=== PATIENT | male | born 1990 | race Caucasian/White ===

== ENCOUNTER 2019-11-08 13:05 | Inpatient (IN) | payer MEDICARE ==
[2019-11-08] MEDS ORDERED: ONDANSETRON 4 MG TAB.RAPDIS PO ONE (13:44)
--- NOTE | 2019-11-08 13:49 | ER Document Report ---
ED Medical Screen (RME) - General Chief Complaint: Abdominal Pain Stated Complaint: ABDOMINAL PAIN Time Seen by Provider: 11/08/19 13:39 - HPI Notes: 11/08/19 13:44 29-year-old male presents emergency room for complaints of abdominal pain with nausea and vomiting, worse after eating for the last 2 months. Patient states he ate a pop tart and coffee this morning and his pain became worse. Denies any endoscopy or colonoscopy. Denies any melena. Stooling normally. States the pain is mostly in his upper abdomen. Does not have a primary care provider. States he notices worse after eating mostly. Has not tried any [id number] medications. Denies Melena or hematemesis. Denies any fevers or chills. Has not had an endoscopy I have greeted and performed a rapid initial assessment of this patient. A comprehensive ED assessment and evaluation of the patient, analysis of test results and completion of the medical decision making process will be conducted by additional ED providers. PHYSICAL EXAMINATION: GENERAL: Well-appearing, well-nourished and in no acute distress. HEAD: Atraumatic, normocephalic. CV: s1, s2 regular LUNGS: No respiratory distress abd: upper abd pain,no CVA tenderness appreciated bilaterally Musculoskeletal: Normal range of motion NEUROLOGICAL: Normal speech, normal gait. SKIN: Warm, Dry, normal turgor, no rashes or lesions noted. - Related Data Allergies/Adverse Reactions: Sulfa (Sulfonamide Antibiotics) Allergy (Verified 11/08/19 13:44) Past Medical History - Social History Chew tobacco use (# tins/day): No Frequency of alcohol use: None Drug Abuse: None Physical Exam - Vital signs Vitals: Temp Pulse Resp BP Pulse Ox 97.4 F 91 20 153/87 H 99 11/08/19 13:10 11/08/19 13:10 11/08/19 13:10 11/08/19 13:10 11/08/19 13:10 Course - Vital Signs Vital signs: Temp Pulse Resp BP Pulse Ox 97.4 F 91 20 153/87 H 99 11/08/19 13:10 11/08/19 13:10 11/08/19 13:10 11/08/19 13:10 11/08/19 13:10
[2019-11-08] MEDS ORDERED: NORMAL SALINE 1000 ML 1,000 ML IV ONE (14:18)
[2019-11-08 14:36] LABS: APPEARANCE,URINE SLIGHTLY-CLOUDY; BILIRUBIN,URINE SMALL (NEGATIVE); COLOR,URINE AMBER; GLUCOSE, URINE NEGATIVE (NEGATIVE); KETONES,URINE NEGATIVE (NEGATIVE); LEUKOCYTE ESTERASE,URINE NEGATIVE (NEGATIVE); NITRITE,URINE NEGATIVE (NEGATIVE); PROTEIN,URINE 30 mg/dL (NEGATIVE); URINE SPECIFIC GRAVITY 1.029
--- NOTE | 2019-11-08 15:38 | RADIOLOGY REPORT (SQ) ---
EXAM DESCRIPTION: U/S ABDOMEN LTD W/DOPPLER IMAGES COMPLETED DATE/TIME: 11/08/2019 3:05 pm REASON FOR STUDY: abd pain worse after eating x2 months, worse today COMPARISON: None. TECHNIQUE: Dynamic and static grayscale images acquired of the abdomen and recorded on PACS. Montseo bhavik selected color Doppler and spectral images recorded. LIMITATIONS: None. FINDINGS: PANCREAS: No masses. Visualized pancreatic duct normal caliber. LIVER: Hepatomegaly with coarsened echotexture. No focal mass. No intrahepatic biliary dilatation. LIVER VASCULATURE: Normal directional flow of the main portal vein and hepatic veins. GALLBLADDER: Multiple small layering gallstones. Additional findings of an echogenic wall with ring down artifact consistent with adenomyomatosis. A small amount of pericholecystic fluid is demonstrat ed. ULTRASOUND-DETECTED BAEZA'S SIGN: Positive. INTRAHEPATIC DUCTS AND COMMON DUCT: CBD and intrahepatic ducts normal caliber. No filling defects. INFERIOR VENA CAVA: Normal flow. AORTA: No aneurysm. RIGHT KIDNEY: Normal size. Normal echogenicity. No solid or suspicious masses. No hydronephrosis. No calcifications. PERITONEAL AND RIGHT PLEURAL SPACE: No ascites or effusions. OTHER: No other significant findings. IMPRESSION: Constellation of findings suggests cholecystitis. Background of cholelithiasis and khalif omyomatosis. Hepatomegaly with coarsened echotexture is a nonspecific finding and may represent hepa titis, early cirrhotic change, or other. TECHNICAL DOCUMENTATION: JOB ID: [id number] 2010 [employer]- All Rights Reserved Reading location - IP/workstation name: [email or web address]
[2019-11-08 15:50] LABS: ABSOLUTE LYMPHOCYTES (AUTO) 0.6 10^3/uL (0.5-4.7); ABSOLUTE MONOCYTES (AUTO) 0.6 10^3/uL (0.1-1.4); ABSOLUTE NEUT (AUTO) 6.5 10^3/uL (1.7-8.2); BASOPHILS % (AUTO) 0.3 % (0-2); EOSINOPHILS % (AUTO) 0.4 % (0-6); HEMATOCRIT 41.9 % (37.9-51.0); HEMOGLOBIN 14.6 g/dL (13.5-17.0); LYMPHOCYTES % (AUTO) 7.5 % (13-45); MEAN CORPUSCULAR HEMOGLOBIN 29.6 pg (27.0-33.4); MEAN CORPUSCULAR HGB CONC 34.9 g/dL (32.0-36.0); MEAN CORPUSCULAR VOLUME 85 fl (80-97); MONOCYTES % (AUTO) 7.4 % (3-13); PLATELET COUNT 264 10^3/uL (150-450); RED BLOOD COUNT 4.93 10^6/uL (4.35-5.55); RED CELL DISTRIBUTION WIDTH 13.6 % (11.5-14.0); SEGMENTED NEUTROPHILS % (AUTO) 84.4 % (42-78); TOTAL CELLS COUNTED % (AUTO) 100 %; WHITE BLOOD COUNT 7.7 10^3/uL (4.0-10.5)
[2019-11-08 16:06] LABS: ALBUMIN 4.9 g/dL (3.5-5.0); ALKALINE PHOSPHATASE 226 U/L (38-126); ANION GAP 13 (5-19); ASPARTATE AMINO TRANSFERASE 620 U/L (17-59); BILIRUBIN,DIRECT 2.5 mg/dL (0.0-0.4); BILIRUBIN,TOTAL 3.5 mg/dL (0.2-1.3); BLOOD UREA NITROGEN 11 mg/dL (7-20); CARBON DIOXIDE 29 mmol/L (22-30); CHLORIDE 98 mmol/L (98-107); GLUCOSE 121 mg/dL (75-110); POTASSIUM 4.9 mmol/L (3.6-5.0)
[2019-11-08] MEDS ORDERED: HYDROCODONE/ACETAMINOPHEN 5-325 MG TABLET PO ONE (16:28)
[2019-11-08] MEDS ORDERED: ONDANSETRON HCL INJ/PF 4 MG/2 ML SDV IV ONE (19:01)
[2019-11-08] MEDS ORDERED: MORPHINE SULFATE 10 MG/ML INJ IV ONE (19:01)
[2019-11-08] MEDS ORDERED: HYDROMORPHONE HCL INJ/PF 2 MG/ML AMPULE IV ONE (21:23)
[2019-11-08] MEDS ORDERED: RINGERS SOLUTION,LACTATED 1,000 ML IV ONE (21:40)
--- NOTE | 2019-11-08 22:16 | ER Document Report ---
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 Patient states that he has had belly pain for months. Had some worse pain today with some vomiting and came in. No fevers or chills. - Related Data Allergies/Adverse Reactions: Sulfa (Sulfonamide Antibiotics) Allergy (Verified 11/08/19 13:44) Past Medical History - General Information source: Patient - Social History Smoking Status: Never Smoker Chew tobacco use (# tins/day): No Frequency of alcohol use: None Drug Abuse: None Family History: None Review of Systems - Review of Systems Notes: Constitutional: No fevers. No chills. EENT: No eye redness. No eye pain. No ear pain. No sore throat. Cardiovascular: No chest pain. No palpitations. Respiratory: No cough. No shortness of breath. No respiratory distress. Gastrointestinal: Positive for abdominal pain as well as nausea and vomiting Genitourinary: Atraumatic. No lesions. No pain. No discharge. Musculoskeletal: Atraumatic. No swelling. No deformities. Skin: No rash or lesions. Lymphatic: No swollen lymph nodes. Neurologic: No headache. No syncope. Psychiatric: No suicidal or homicidal ideation. Physical Exam - Vital signs Vitals: Temp Pulse Resp BP Pulse Ox 97.4 F 91 20 153/87 H 99 11/08/19 13:10 11/08/19 13:10 11/08/19 13:10 11/08/19 13:10 11/08/19 13:10 - Notes Notes: General: Well-developed, well-nourished. In no acute distress. Non-toxic appearing. Cardiac: Well-perfused. Regular rate and rhythm. No murmurs, rubs, or gallops. Pulmonary: No respiratory distress. No cyanosis. Bilateral lung day are clear to auscultation. Abdominal: Morbidly obese. Epigastric and right upper quadrant tenderness. Abdomen nondistended. Bowel sounds present all 4 quadrants HEENT: Head is atraumatic. Conjunctivae not reddened. No tearing. PERRL. EOMI. Orbits atraumatic. No periorbital swelling or erythema. Oropharynx is without erythema, swelling, or exudates. Neck: Supple. No adenopathy. No meningismus. Dermatologic: Warm with good turgor. No rash. Atraumatic. Chest: Atraumatic. No chest wall tenderness to palpation. Musculoskeletal: Moves all extremities well. No range of motion deficits. no muscular or joint tenderness. No paraspinal muscle tenderness. no midline spinal tenderness or step-off. Genitourinary: Examination deferred Neurologic: No gross neurologic deficits. Psychiatric: Normal mood. Course - Re-evaluation Re-evalutation: 11/08/19 22:[address] Sullivan search engine optimization manager for surgery. Will come down to see the patient. Believes that this is a gallstone pancreatitis and not a cholecystitis and should be managed medically by the hospitalist. Dr. Whittaker contacted and declines admit stating patient will need ERCP and need to transfer. Contacted [facility], [facility], and [facility] who did not have any beds available. I was advised by the surgeon at [facility] that this is something that should be managed medically and then potentially there may be a need down the road for ERCP so at least at first the patient should be managed by hospitalist service. In any event Dr. Sullivan did come to see the patient. He wants the patient heavily hydrated with 3 L of IV fluids and then have a CT with IV contrast completed. In the meantime he said that he would admit but he wants the patient to go to the ICU. I spoke with Paco JARRETT who said he will come and see the patient and plan to admit to the unit. - Vital Signs Vital signs: Temp Pulse Resp BP Pulse Ox 98.2 F 85 20 140/89 H 100 11/08/19 20:22 11/08/19 20:22 11/08/19 20:22 11/08/19 20:22 11/08/19 20:22 - Laboratory Result Diagrams: 11/08/19 15:10 11/08/19 15:10 Laboratory results interpreted by me: 11/08/19 11/08/19 11/08/19 14:00 15:10 15:10 Lymph % (Auto) 7.5 L Seg Neutrophils % 84.4 H Glucose 121 H Total Bilirubin 3.5 H Direct Bilirubin 2.5 H AST 620 H ALT 513 H Alkaline Phosphatase 226 H Lipase 13355.4 H Urine Protein 30 H Urine Bilirubin SMALL H Urine Urobilinogen 4.0 H - Diagnostic Test Radiology reviewed: Reports reviewed Discharge - Discharge Clinical Impression: Gallstone pancreatitis Condition: Good Disposition: ADMITTED INPATIENT Admitting Provider: paco jarrett Unit Admitted: ICU
[2019-11-09] MEDS: RINGERS SOLUTION,LACTATED 1,000 ML IV PRN ×7 (00:20→23:28)
--- NOTE | 2019-11-09 00:32 | PDOC CONSULTATION ---
Consultation Consult Date: 11/09/19 Attending physician:: EARNEST GARAY Provider Consulted: JATIN CARMICHAEL Consult reason:: gallstonep pancreatitis History of Present Illness Admission Date/PCP: 11/08/19 22:45 History of Present Illness: EGRONIMO ROPER is a 29 year old malePatient is a 29-year-old male with history of Levar Willi syndrome who comes in with chief complaint of upper abdominal pain and vomiting. Patient states that he has had belly pain for mon ths. Had some worse pain today with some vomiting and came in. No fevers or chills Past Medical History Cardiac Medical History: Reports: None Pulmonary Medical History: Reports: None EENT Medical History: Reports: None Neurological Medical History: Reports: Other - partial fascial hemiparesis since Endocrine Medical History: Reports: Other - levar-castillo syndrome Renal/ Medical History: Reports: None Malignancy Medical History: Reports: None GI Medical History: Reports: None Musculoskeltal Medical History: Reports: None Skin Medical History: Reports: None Psychiatric Medical History: Denies: None, Alcohol Dependency, Attention Deficit Hyperactivity Disorder, Bipolar Disorder, Dementia, Depression, General Anxiety Disorder, Personality Disorder, Post Traumatic Stress Disorder, Schizoaffective Disorder, Substance Abuse, Tobacco Dependency, Other Traumatic Medical History: Denies: None, Gunshot Wound, Pneumothorax, Stab Wound, Traumatic Brain Injury, Other Hematology: Denies: None, Anemia, Hemophilia, Sickle Cell Disease, Bleeding Tendencies, Heparin Induced Thrombocytopenia, Neutropenia, Other Infectious Medical History: Denies: None, Clostridium Difficile, Hepatitis B, Hepatitis C, HIV, Methicill in-Resistant Staph Aureus, Vancomycin-Resistant Enterococci, Other Past Surgical History Past Surgical History: Denies: None, Appendectomy, Cardiac Catheterization, Carotid Endarterectomy, Cholecystectomy, Colostomy, Coronary Artery Bypass Graft, Coronary Stent, Gastric Bypass Surgery, Herniorrhaphy, Hip Replacement, Ileostomy, Internal Defibrillator, Knee Replacement, Orthopedic Surgery, Pacemaker, Renal Transplant, Splenectomy, Thyroidectomy, Tonsillectomy, Valve Replacement, Vascular Surgery, Other Social History Smoking Status: Never Smoker Electronic Cigarette use?: No Family History Family History: None Parental Family History Reviewed: No Children Family History Reviewed: NA Sibling(s) Family History Reviewed.: NA Medication/Allergy Allergies/Adverse Reactions: Sulfa (Sulfonamide Antibiotics) Allergy (Verified 11/08/19 13:44) Review of Systems Constitutional: PRESENT: fatigue Eyes: ABSENT: as per HPI, visual disturbances, other Ears: ABSENT: as per HPI, hearing changes, other Nose, Mouth, and Throat: ABSENT: as per HPI, headache(s), mouth pain, sore throat, vertigo, other Breasts: ABSENT: as per HPI, other Cardiovascular: ABSENT: as per HPI, chest pain, dyspnea on exertion, edema, orthropnea, palpitations, other Respiratory: ABSENT: as per HPI, cough, dyspnea, hemoptysis, sputum, other Gastrointestinal: ABSENT: as per HPI, abdominal pain, bloating, coffee ground emesis, constipation, diarrhea, dysphagia, heartburn, hematemesis, hematochezia, melena, nausea, vomiting, other Genitourinary: ABSENT: as per HPI, difficulty urinating, dysuria, hematuria, nocturia, other Musculoskeletal: ABSENT: as per HPI, back pain, deformity, joint swelling, muscle weakness, other Integumentary: ABSENT: as per HPI, diaphoresis, erythema, lesions, pruritus, rash, wounds, other Neurological: PRESENT: focal weakness, weakness Psychiatric: ABSENT: as per HPI, anxiety, depression, hallucinations, homidical ideation, suicidal ideation, other Endocrine: ABSENT: as per HPI, cold intolerance, flushing, heat intolerance, menstrual abnormalities, polydipsia, polyphagia, polyuria, other Hematologic/Lymphatic: ABSENT: as per HPI, easy bleeding, easy bruising, lymphadenopathy, other Allergic/Immunologic: ABSENT: as per HPI, seasonal rhinorrhea, other Physical Exam Vital Signs: Temp Pulse Resp BP Pulse Ox 98.2 F 85 20 140/89 H 100 11/08/19 20:22 11/08/19 20:22 11/08/19 20:22 11/08/19 20:22 11/08/19 20:22 Intake & Output 11/07/19 11/08/19 11/09/19 06:59 06:59 06:59 Intake Total 1999 Balance 1999 Weight 185.5 kg General appearance: PRESENT: mild distress, morbidly obese Head exam: PRESENT: atraumatic Eye exam: PRESENT: EOMI Ear exam: PRESENT: normal external ear exam Mouth exam: PRESENT: dry mucosa, moist Teeth exam: PRESENT: poor dentation Neck exam: PRESENT: full ROM Respiratory exam: PRESENT: clear to auscultation mari Cardiovascular exam: PRESENT: RRR Pulses: PRESENT: normal radial pulses, normal femoral pulses Breast: PRESENT: Normal GI/Abdominal exam: PRESENT: tenderness - ruq and epigastrium Rectal exam: PRESENT: deferred Gentrourinary exam: ABSENT: ecchymosis, erythema, lacerations, lesions, scrotal swelling, testicular tenderness, urethral discharge, indwelling catheter, other Extremities exam: PRESENT: full ROM Musculoskeletal exam: PRESENT: full ROM Neurological exam: PRESENT: alert, awake, oriented to person, oriented to place Psychiatric exam: PRESENT: appropriate affect Skin exam: PRESENT: dry Results Laboratory Results: 11/08/19 15:10 11/08/19 15:10 11/08/19 11/08/19 11/08/19 14:00 15:10 15:10 WBC 7.7 RBC 4.93 Hgb 14.6 Hct 41.9 MCV 85 MCH 29.6 MCHC 34.9 RDW 13.6 Plt Count 264 Seg Neutrophils % 84.4 H Sodium 139.6 Potassium 4.9 Chloride 98 Carbon Dioxide 29 Anion Gap 13 BUN 11 Creatinine 0.74 Est GFR ( Amer) > 60 Glucose 121 H Calcium 10.0 Total Bilirubin 3.5 H AST 620 H Alkaline Phosphatase 226 H Total Protein 8.0 Albumin 4.9 Lipase 57143.4 H Urine Color MARY Urine Appearance SLIGHTLY-CLOUDY Urine pH 5.0 Ur Specific [place] 1.029 Urine Protein 30 H Urine Glucose (UA) NEGATIVE Urine Ketones NEGATIVE Urine Blood NEGATIVE Urine Nitrite NEGATIVE Ur Leukocyte Esterase NEGATIVE Urine WBC (Auto) 2 Urine RBC (Auto) 0 Impressions: Abdomen Ultrasound 11/08/19 13:43 IMPRESSION: Constellation of findings suggests cholecystitis. Background of cholelithiasis and adenomyomatosis. Hepatomegaly with coarsened echotexture is a nonspecific finding and may represent hepatitis, early cirrhotic change, or other. Assessment & Plan - Plan Summary Plan Summary: impression- Gallstone Pancreatitis morbid obesity recommend icu admission and iv resuscitation ct scan after iv resuscitation will trend lft's, renal function, lipase will need lap mary before discharge home. surgery will follow
[2019-11-09] MEDS ORDERED: HYDROMORPHONE HCL INJ/PF 2 MG/ML AMPULE IV PRN (00:41)
--- NOTE | 2019-11-09 01:54 | CRITICAL CARE ADMISSION REPORT ---
HPI Date:: 11/09/19 Time:: 00:55 Reason for ICU Reason:: Pancreatitis Admission Date/Time & PCP: Admission Date/Time: 11/08/19 22:45 Primary Care Provider: HPI: 29-year-old gentleman with a history of Prader-Willi syndrome and partial facial hemiparesis since childbirth. He has been experiencing upper abdominal pain for the past 4 months. Patient's abdominal pain was worsened today with associated vomiting. Abdominal ultrasound shows evidence of cholelithiasis and patient's pancreatic enzymes are significantly elevated. In the ED, patient is being rehydrated and will undergo a CT scan of his abdomen to further evaluate. He is being admitted to the intensive care unit for observation overnight and for aggressive rehydration. History obtained from:: Patient, Medical Documentation. - Diagnosis/Plan (1) Gallstone pancreatitis Is this a current diagnosis for this admission?: Yes Plan: Continue rehydration with LR at 250 mL an hour overnight. Monitor strict I's and O's. Follow-up CT scan Went with Dilaudid as needed. Patient is being followed by surgery for eventual intervention. Past Medical History Cardiac Medical History: Reports: None Pulmonary Medical History: Reports: None EENT Medical History: Reports: None Denies: Other Neurological Medical History: Reports: Other - partial fascial hemiparesis since Endocrine Medical History: Reports: Other - ej-castillo syndrome Renal/ Medical History: Reports: None Malignancy Medical History: Reports: None GI Medical History: Reports: None Musculoskeltal Medical History: Reports: None Skin Medical History: Reports: None Psychiatric Medical History: Reports: Other - Prader-Willi syndrome Denies: None, Alcohol Dependency, Attention Deficit Hyperactivity Disorder, Bipolar Disorder, Dementia, Depression, General Anxiety Disorder, Personality Disorder, Post Traumatic Stress Disorder, Schizoaffective Disorder, Substance Abuse, Tobacco Dependency Traumatic Medical History: Denies: None, Gunshot Wound, Pneumothorax, Stab Wound, Traumatic Brain Injury, Other Hematology: Denies: None, Anemia, Hemophilia, Sickle Cell Disease, Bleeding Tendencies, Heparin Induced Thrombocytopenia, Neutropenia, Other Infectious Medical History: Denies: None, Clostridium Difficile, Hepatitis B, Hepatitis C, HIV, Methicillin-Resistant Staph Aureus, Vancomycin-Resistant Enterococci, Other Past Surgical History Past Surgical History: Reports: None Denies: Appendectomy, Cardiac Catheterization, Carotid Endarterectomy, Cholecystectomy, Colostomy, Coronary Artery Bypass Graft, Coronary Stent, Gastric Bypass Surgery, Herniorrhaphy, Hip Replacement, Ileostomy, Internal Defibrillator, Knee Replacement, Orthopedic Surgery, Pacemaker, Renal Transplant, Splenectomy, Thyroidectomy, Tonsillectomy, Valve Replacement, Vascular Surgery, Other Social/Family History - Social History Smoking Status: Never Smoker - Medication/Allergies Allergies/Adverse Reactions: Sulfa (Sulfonamide Antibiotics) Allergy (Verified 11/08/19 13:44) Review of Systems Constitutional: PRESENT: as per HPI Gastrointestinal: PRESENT: as per HPI, nausea - Patient with ongoing abdominal pain worse on the left., other Psychiatric: PRESENT: as per HPI Physical Exam Vital Signs: Temp Pulse Resp BP Pulse Ox 98.2 F 85 20 140/89 H 100 11/08/19 20:22 11/08/19 20:22 11/08/19 20:22 11/08/19 20:22 11/08/19 20:22 Intake & Output 11/07/19 11/08/19 11/09/19 06:59 06:59 06:59 Intake Total 1999 Balance 1999 Weight 185.5 kg Weight/Height Weight 185.5 kg Height 6 ft General appearance: PRESENT: morbidly obese Head exam: PRESENT: atraumatic, normocephalic Neck exam: PRESENT: full ROM. ABSENT: JVD, lymphadenopathy Respiratory exam: PRESENT: clear to auscultation mari. ABSENT: rales, rhonchi, wheezes Cardiovascular exam: PRESENT: RRR, +S1, +S2 Pulses: PRESENT: normal carotid pulses, normal radial pulses Vascular exam: PRESENT: normal capillary refill GI/Abdominal exam: PRESENT: guarding, hypoactive bowel sounds, soft, tenderness Extremities exam: ABSENT: pedal edema Musculoskeletal exam: PRESENT: normal inspection Neurological exam: PRESENT: alert, altered, awake Psychiatric exam: PRESENT: anxious, appropriate affect Skin exam: PRESENT: normal color, warm. ABSENT: abrasion Laboratory/Radiographs Laboratory Results: 11/08/19 15:10 11/08/19 15:10 11/08/19 11/08/19 11/08/19 14:00 15:10 15:10 WBC 7.7 RBC 4.93 Hgb 14.6 Hct 41.9 MCV 85 MCH 29.6 MCHC 34.9 RDW 13.6 Plt Count 264 Seg Neutrophils % 84.4 H Sodium 139.6 Potassium 4.9 Chloride 98 Carbon Dioxide 29 Anion Gap 13 BUN 11 Creatinine 0.74 Est GFR ( Amer) > 60 Glucose 121 H Calcium 10.0 Total Bilirubin 3.5 H AST 620 H Alkaline Phosphatase 226 H Total Protein 8.0 Albumin 4.9 Lipase 85233.4 H Urine Color MARY Urine Appearance SLIGHTLY-CLOUDY Urine pH 5.0 Ur Specific [place] 1.029 Urine Protein 30 H Urine Glucose (UA) NEGATIVE Urine Ketones NEGATIVE Urine Blood NEGATIVE Urine Nitrite NEGATIVE Ur Leukocyte Esterase NEGATIVE Urine WBC (Auto) 2 Urine RBC (Auto) 0 Impressions: Abdomen Ultrasound 11/08/19 13:43 IMPRESSION: Constellation of findings suggests cholecystitis. Background of cholelithiasis and adenomyomatosis. Hepatomegaly with coarsened echotexture is a nonspecific finding and may represent hepatitis, early cirrhotic change, or ot her. All labs, radiographs, diagnostic studies and EKGs were personally reviewed: Yes In addition, reports of radiographic and diagnostic studies were read: Yes Critical Time Critical Time (minutes): 62 -: The care of a critically ill patient is dynamic. This note represents a static moment in the admission process. Orders and treatments may be given simultaneously and urgently, and time is not sales representative raw fibers of the treatment process. This patient requires Critical Care secondary to life threatening organ or limb dysfunction. Without Critical Care services, the patient is at risk for increased mortality and morbidity.
--- NOTE | 2019-11-09 03:29 | RADIOLOGY REPORT (SQ) ---
CLINICAL HISTORY: abdominal pain, burning, nausea, vomiting COMPARISON: None. TECHNIQUE: CT ABDOMEN PELVIS WITH IV CONTRAST on 11/08/2019 9:45 PM CDT This exam was performed according to our departmental dose-optimization program, which includes automated exposure control, adjustment of the mA and/or kV according to patient size and/or use of iterative reconstruction technique. FINDINGS: Lower lungs are clear. Abdomen: The liver is normal in appearance. There is no biliary dilatation. Gallbladder is fatty in attenuation. Gallbladder is mildly distended. There is moderate inflammation surrounding the pancreas. Spleen is normal in size. The adrenal glands and kidneys are unremarkable. Abdominal aorta is normal in course and caliber without aneurysm. There is no free air. There is no retroperitoneal adenopathy. Pelvis: There is no bowel obstruction. Urinary bladder is decompressed with a Chris catheter. There is no free fluid. Appendix is normal. Skeleton: There are no acute osseous findings. No suspicious bony lesions. IMPRESSION: Moderate diffuse pancreatitis.
[2019-11-09] MEDS: HYDROMORPHONE HCL INJ/PF 2 MG/ML AMPULE IV PRN ×9 (03:41→22:02)
[2019-11-09] MEDS: HEPARIN SOD (PORCINE) 5,000 UNIT/ML 1 ML VIAL SUBCUT SCH ×3 (06:23→21:59)
[2019-11-09 06:28] LABS: HEMATOCRIT 36.6 % (37.9-51.0); MEAN CORPUSCULAR HEMOGLOBIN 29.9 pg (27.0-33.4); MEAN CORPUSCULAR HGB CONC 35.5 g/dL (32.0-36.0); MEAN CORPUSCULAR VOLUME 84 fl (80-97); PLATELET COUNT 199 10^3/uL (150-450); RED BLOOD COUNT 4.36 10^6/uL (4.35-5.55); RED CELL DISTRIBUTION WIDTH 13.9 % (11.5-14.0); WHITE BLOOD COUNT 6.6 10^3/uL (4.0-10.5)
[2019-11-09 06:43] LABS: ALBUMIN 3.9 g/dL (3.5-5.0); ALKALINE PHOSPHATASE 179 U/L (38-126); AMYLASE 444 U/L (30-110); ANION GAP 9 (5-19); ASPARTATE AMINO TRANSFERASE 225 U/L (17-59); BILIRUBIN,DIRECT 0.5 mg/dL (0.0-0.4); BILIRUBIN,TOTAL 1.2 mg/dL (0.2-1.3); BLOOD UREA NITROGEN 8 mg/dL (7-20); CALCIUM 8.7 mg/dL (8.4-10.2); CARBON DIOXIDE 27 mmol/L (22-30); CHLORIDE 102 mmol/L (98-107); GLUCOSE 100 mg/dL (75-110); TOTAL PROTEIN 6.7 g/dL (6.3-8.2)
--- NOTE | 2019-11-09 08:29 | Progress Note ---
Provider Note Provider Note: Patient is doing much better. All LFTs [place] [address] overnight. C/W gallstone pancreatitis. Does not need an ICU level of care. I've spoken to Dr. Sullivan and he is to have a cholecystectomy .
[2019-11-10] MEDS: HYDROMORPHONE HCL INJ/PF 2 MG/ML AMPULE IV PRN ×7 (00:10→20:09)
[2019-11-10] MEDS ORDERED: ONDANSETRON HCL INJ/PF 4 MG/2 ML SDV ONE ×2 (03:46→16:49)
[2019-11-10] MEDS: ONDANSETRON HCL INJ/PF 4 MG/2 ML SDV IV PRN (03:50)
[2019-11-10] MEDS: HEPARIN SOD (PORCINE) 5,000 UNIT/ML 1 ML VIAL SUBCUT SCH ×3 (05:10→22:44)
[2019-11-10 05:52] LABS: ABSOLUTE EOSINOPHILS # (AUTO) 0.1 10^3/uL (0.0-0.6); ABSOLUTE LYMPHOCYTES (AUTO) 0.6 10^3/uL (0.5-4.7); ABSOLUTE MONOCYTES (AUTO) 0.7 10^3/uL (0.1-1.4); ABSOLUTE NEUT (AUTO) 5.1 10^3/uL (1.7-8.2); BASOPHILS % (AUTO) 0.2 % (0-2); EOSINOPHILS % (AUTO) 1.4 % (0-6); LYMPHOCYTES % (AUTO) 9.9 % (13-45); MEAN CORPUSCULAR HEMOGLOBIN 29.8 pg (27.0-33.4); MEAN CORPUSCULAR HGB CONC 35.3 g/dL (32.0-36.0); MEAN CORPUSCULAR VOLUME 84 fl (80-97); PLATELET COUNT 207 10^3/uL (150-450); RED BLOOD COUNT 4.03 10^6/uL (4.35-5.55); RED CELL DISTRIBUTION WIDTH 13.9 % (11.5-14.0); SEGMENTED NEUTROPHILS % (AUTO) 78.5 % (42-78); TOTAL CELLS COUNTED % (AUTO) 100 %; WHITE BLOOD COUNT 6.5 10^3/uL (4.0-10.5)
[2019-11-10 05:56] LABS: INTERNATIONAL RATION (INR) 1.08; PROTHROMBIN TIME 14.2 SEC (11.4-15.4)
[2019-11-10 06:10] LABS: ALBUMIN 3.8 g/dL (3.5-5.0); ALKALINE PHOSPHATASE 164 U/L (38-126); AMYLASE 208 U/L (30-110); ANION GAP 9 (5-19); ASPARTATE AMINO TRANSFERASE 90 U/L (17-59); BILIRUBIN,DIRECT 0.5 mg/dL (0.0-0.4); BILIRUBIN,TOTAL 1.3 mg/dL (0.2-1.3); BLOOD UREA NITROGEN 8 mg/dL (7-20); CARBON DIOXIDE 27 mmol/L (22-30); CHLORIDE 99 mmol/L (98-107); GLUCOSE 99 mg/dL (75-110); POTASSIUM 4.4 mmol/L (3.6-5.0); TOTAL PROTEIN 6.6 g/dL (6.3-8.2)
[2019-11-10] MEDS: RINGERS SOLUTION,LACTATED 1,000 ML IV PRN ×3 (06:18→23:52)
[2019-11-10] MEDS ORDERED: METRONIDAZOLE 500 MG/NS RTU 500 MG/100 ML RTUPB IV ONE (09:29)
[2019-11-10] MEDS ORDERED: CEFAZOLIN INJ 1 GM VIAL ONE (09:29)
[2019-11-10] MEDS ORDERED: FENTANYL CITRATE INJ/PF 100 MCG/2 ML AMPUL ONE (10:32)
[2019-11-10] MEDS ORDERED: EPHEDRINE SULFATE INJ 50 MG/1 ML AMPULE ONE (10:32)
[2019-11-10] MEDS ORDERED: MIDAZOLAM 2 MG/2 ML INJ ONE (10:32)
[2019-11-10] MEDS ORDERED: SUGAMMADEX SODIUM 200 MG/2 ML SDV IV ONE (10:32)
[2019-11-10] MEDS ORDERED: PROPOFOL INJ 200 MG/20 ML VIAL IV ONE (10:33)
[2019-11-10] MEDS ORDERED: BUPIVACAINE INJ/PF LIPOSOME/PF 266 MG/20 ML SDV ONE (10:44)
[2019-11-10] MEDS ORDERED: DIPHENHYDRAMINE HCL 50 MG/ML VIAL IV PRN (12:05)
[2019-11-10] MEDS ORDERED: FENTANYL CITRATE INJ/PF 100 MCG/2 ML AMPUL IV PRN ×3 (12:05)
[2019-11-10] MEDS ORDERED: ONDANSETRON HCL INJ/PF 4 MG/2 ML SDV IV PRN (12:05)
[2019-11-10] MEDS ORDERED: PROMETHAZINE HCL INJ 25 MG/1 ML VIAL IV PRN ×2 (12:05)
[2019-11-10] MEDS ORDERED: MEPERIDINE HCL/PF INJ 25 MG/1 ML DISP.SYRIN IV PRN (12:05)
--- NOTE | 2019-11-10 13:45 | Operative Report ---
Nonrecallable Operative Report DATE OF SURGERY: 11/10/19 PREOPERATIVE DIAGNOSIS: gallstone pancreatitis POSTOPERATIVE DIAGNOSIS: gallstone pancreatitis OPERATION: Laparoscopic cholecystectomy with cholangiograms SURGEON: JATIN SANTIAGO DIRECTOR HOUSEKEEPING: CANDIDO DOWELL ANESTHESIA: GA TISSUE REMOVED OR ALTERED: Gallbladder COMPLICATIONS: None ESTIMATED BLOOD LOSS: 50 cc INTRAOPERATIVE FINDINGS: See note PROCEDURE: After obtaining informed consent, the patient was taken to the operating room. General Anesthesia was induced; the arms were extended, and the abdomen was exposed, and prepped and draped in a sterile fashion. Instrumentation was set up for laparoscopic cholecystectomy. Surgical plan and surgical timeout were conducted. A vertical incision was made above the umbilicus, and a verres needle was inserted uneventfully into the peritoneal cavity. Pneumoperitoneum was established. The verres needle was removed and a 10mm trocar was inserted and a 10volvulus flexible laparoscope was inserted. Visualization of the peritoneal cavity confirmed safe uneventful entry. Under direct visualization 3 additional 5 mm ports were established, one in the subxiphoid position and second in the subcostal position. Visualization of the hepatobiliary anatomy revealed no anatomic variations. A grasper was placed on the fundus of the gallbladder and the gallbladder is elevated over the right surface of the liver; a second grasper was used to grasp the infundibulum of the gallbladder. The neck of the gallbladder and junction with the cystic duct was dissected out. The Cystic artery was in its usual location medial and cephalad to the cystic duct. The cystic artery was surrounded with a right angle clamp, a Endo Clip was placed on the proximal end of the cystic duct and cystic ductotomy was then performed A intraoperative cholangiogram was performed which showed no evidence of stones in the common bile duct right and left pedicles were identified and flow into the duodenum was seen. 2 endoclips placed on the stay side cystic duct was divided. We now opened the triangle of Calot by dividing the peritoneal reflection on both the medial and lateral sides of the cystic duct infundibular junction. The critical view was obtained. We now milked the cystic duct of any possible stones, clipped the cystic duct approximately 2 times once distally and divided with scissors. The gallbladder was now removed from the undersurface of the liver using hook cautery dissection. Graspers were repositioned and the gallbladder was removed uneventfully from the abdominal cavity through the super umbilical port site incision. The specimen was examined, then passed off to pathology for permanent analysis. We returned to the peritoneal cavity check for bleeding, and evidence of bile leak, and there was none. We Confirmed satisfactory placement of clips on cystic duct and cystic artery were secured . At this point we felt the operation was complete. The subcutaneous tissue was then anesthetized with quarter percent Marcaine Sponge and needle counts are correct. All ports removed under direct visualization pneumoperitoneum evacuated, and 5 mm port wounds closed with 3-0 Vicryl suture, benzoin and Steri-Strips. The patient was extubated, and taken to the recovery room in stable condition. Estimated blood loss procedure was 25 cc sponge needle counts were correct x2 patient was awakened in the operating extubated transferred recovery in stable condition. TEMI Leblanc was present for the entire case for help with wound retraction wound closure and the dissection.
--- NOTE | 2019-11-10 14:34 | RADIOLOGY REPORT (SQ) ---
EXAM DESCRIPTION: CHOLANGIOGRAM OPERATIVE IMAGES COMPLETED DATE/TIME: 11/10/2019 2:17 pm REASON FOR STUDY: CHOLANGIOGRAM IN OR COMPARISON: None. FLUOROSCOPY TIME: 0.5 minutes 4 images saved to PACS. TECHNIQUE: Fluoroscopic spot images were obtained from an intraoperative cholangiogram. LIMITATIONS: None. FINDINGS: There is opacification of the bile ducts, cystic duct remnants and second portion of the d uodenum without evidence of fixed filling defect or significant extravasation. IMPRESSION: INTRAOPERATIVE CHOLANGIOGRAM. COMMENT: Quality ID [id number]: Final reports for procedures using fluoroscopy that document radiation exp osure indices, or exposure time and number of fluorographic images (if radiation exposure indices are not available) TECHNICAL DOCUMENTATION: JOB ID: [id number] 2010 [employer]- All Rights Reserved Reading location - IP/workstation name: [email or web address]
--- NOTE | 2019-11-10 15:38 | PDOC PROGRESS REPORT ---
Subjective Progress Note for:: 11/10/19 Subjective:: The patient had his laparoscopic cholecystectomy earlier today. He has just returned from recovery and is very sleepy. He did however answer questions. Clearly he is still in pain. Reason For Visit: PANCREATITIS Physical Exam Vital Signs: Temp Pulse Resp BP Pulse Ox 98.0 F 84 17 136/79 H 92 11/10/19 14:25 11/10/19 14:25 11/10/19 14:25 11/10/19 14:25 11/10/19 14:25 Intake & Output 11/09/19 11/10/19 11/11/19 06:59 06:59 06:59 Intake Total 3483 4360 2500 Output Total 375 1450 150 Balance 3108 2910 2350 Weight 186.9 kg 190.1 kg General appearance: PRESENT: cooperative, mild distress, morbidly obese, well- developed Head exam: PRESENT: atraumatic, normocephalic Eye exam: PRESENT: other - Did not assess Ear exam: PRESENT: normal external ear exam. ABSENT: bleeding, drainage Mouth exam: PRESENT: dry mucosa, tongue midline Respiratory exam: PRESENT: clear to auscultation mari - Anteriorly, symmetrical, unlabored. ABSENT: accessory muscle use, prolonged expiratory phas, rales, rhonchi, tachypnea, wheezes Cardiovascular exam: PRESENT: RRR, +S1, +S2. ABSENT: bradycardia, irregular rhythm GI/Abdominal exam: PRESENT: distended - Protuberant abdomen secondary to obesity, hypoactive bowel sounds, other - Limited exam as patient is acutely postop Rectal exam: PRESENT: deferred Gentrourinary exam: PRESENT: indwelling catheter Extremities exam: PRESENT: pedal edema, other - SCDs in place Neurological exam: PRESENT: awake. ABSENT: alert Psychiatric exam: PRESENT: flat affect - Somnolent from anesthesia. ABSENT: agitated, anxious Results Laboratory Results: 11/10/19 05:30 11/10/19 05:30 11/10/19 11/10/19 05:30 05:30 WBC 6.5 RBC 4.03 L Hgb 12.0 L Hct 34.0 L MCV 84 MCH 29.8 MCHC 35.3 RDW 13.9 Plt Count 207 Seg Neutrophils % 78.5 H Sodium 135.1 L Potassium 4.4 Chloride 99 Carbon Dioxide 27 Anion Gap 9 BUN 8 Creatinine 0.56 Est GFR ( Amer) > 60 Glucose 99 Calcium 9.0 Total Bilirubin 1.3 AST 90 H Alkaline Phosphatase 164 H Total Protein 6.6 Albumin 3.8 Amylase 208 H Lipase 1313.5 H Impressions: Abdomen Ultrasound 11/08/19 13:43 IMPRESSION: Constellation of findings suggests cholecystitis. Background of cholelithiasis and adenomyomatosis. Hepatomegaly with coarsened echotexture is a nonspecific finding and may represent hepatitis, early cirrhotic change, or other. Abdomen/Pelvis CT 11/08/19 21:45 IMPRESSION: Moderate diffuse pancreatitis. Cholangiogram 11/10/19 00:00 IMPRESSION: INTRAOPERATIVE CHOLANGIOGRAM. Assessment and Plan - Diagnosis (1) Gallstone pancreatitis Is this a current diagnosis for this admission?: Yes Plan: 11/10/2019 The patient was initially admitted to the intensive care unit. At that time lipase was 23,000, amylase was 444 and AST, ALT, bilirubin and alkaline moises sphatase were all elevated. Interestingly he did not have an elevated white blood cell count. He was monitored in the intensive care unit overnight and transferred to the floor yesterday afternoon. As planned Dr. Sullivan took him to the operating room and performed a laparoscopic cholecystectomy this morning. The patient is acutely postop at this time. This morning's blood work revealed a lipase that was down to 1313.5. His amylase is down to 205. Total bilirubin is down to 1.3 from 3.5 with a direct bilirubin of 0.5. Remaining levels for today include AST equals 90, ALT equals 230 and alkaline phosphatase is 164. The patient will continue on IV fluids with pain management per surgery. He will be monitored on telemetry. Blood pressure is slightly elevated but will reassess tomorrow when some of his pain resolves. Will coordinate with surgery regarding discharge. At the time of surgery no duct stones were identified. (2) Abdominal pain Qualifiers: Abdominal location: upper abdomen, unspecified Qualified Code(s): R10.10 - Upper abdominal pain, unspecified Is this a current diagnosis for this admission?: Yes Plan: 11/10/2019 secondary to pancreatitis. As needed analgesia will be available. (3) Morbid obesity with BMI of 50.0-59.9, adult Is this a current diagnosis for this admission?: Yes Plan: The patient's BMI is 56.8. This presents a serious risk for surgical inter vention. They were able to successfully perform a laparoscopic cholecystectomy as a laparotomy has high risk of dehiscence in a patient of this size. His morbid obesity also puts him at risk for cardiovascular disease and diabetes. We will need to monitor for obesity hypoventilation. I have ordered incentive spirometry at the bedside for his recovery. We will need to mobilize postoperatively as well. - Time Time Spent with patient: Less than 15 minutes Medications reviewed and adjusted accordingly: Yes Anticipated Discharge Disposition: Home, Self Care Anticipated Discharge Timeframe: within 48 hours
[2019-11-10] MEDS ORDERED: KETOROLAC TROMETHAMINE 60 MG/2 ML SDV ONE (16:49)
[2019-11-10] MEDS ORDERED: SUCCINYLCHOLINE CHLORIDE INJ 200 MG/10 ML VIAL ONE (16:49)
[2019-11-10] MEDS ORDERED: LIDOCAINE 2% INJ-PF (20 MG/ML) 2 ML AMPUL ONE (16:49)
[2019-11-10 21:56] LABS: HEMATOCRIT 34.2 % (37.9-51.0); INTERNATIONAL RATION (INR) 1.12; MEAN CORPUSCULAR HEMOGLOBIN 29.5 pg (27.0-33.4); MEAN CORPUSCULAR HGB CONC 35.1 g/dL (32.0-36.0); MEAN CORPUSCULAR VOLUME 84 fl (80-97); PLATELET COUNT 204 10^3/uL (150-450); PROTHROMBIN TIME 14.6 SEC (11.4-15.4); RED BLOOD COUNT 4.06 10^6/uL (4.35-5.55); RED CELL DISTRIBUTION WIDTH 13.5 % (11.5-14.0); WHITE BLOOD COUNT 7.7 10^3/uL (4.0-10.5)
[2019-11-10 21:57] LABS: PARTIAL THROMBOPLASTIN TIME 34.3 SEC (23.5-35.8)
[2019-11-10 22:24] LABS: ABSOLUTE LYMPHOCYTES# (MANUAL) 0.2 10^3/uL (0.5-4.7); ABSOLUTE MONOCYTES # (MANUAL) 0.4 10^3/uL (0.1-1.4); BASOPHILS % (MANUAL) 0 % (0-2); EOSINOPHILS % (MANUAL) 0 % (0-6); LYMPHOCYTES % (MANUAL) 3 % (13-45); MONOCYTES % (MANUAL) 5 % (3-13); PLATELET COMMENT ADEQUATE; RBC MORPHOLOGY COMMENT NORMO-CYTIC/CHROMIC; SEGMENTED NEUTROPHILS % (MAN) 92 % (42-78); TOTAL CELLS COUNTED 100
[2019-11-11] MEDS: ONDANSETRON HCL INJ/PF 4 MG/2 ML SDV IV PRN (03:36)
[2019-11-11] MEDS: HEPARIN SOD (PORCINE) 5,000 UNIT/ML 1 ML VIAL SUBCUT SCH ×3 (05:37→22:11)
[2019-11-11] MEDS: RINGERS SOLUTION,LACTATED 1,000 ML IV PRN (05:53)
[2019-11-11] MEDS ORDERED: INFLUENZA QUAD (6MOS+) 2020-21 VAC 0.5 ML SYR IM ONE (08:00)
--- NOTE | 2019-11-11 08:18 | PDOC PROGRESS REPORT ---
Subjective Progress Note for:: 11/11/19 Subjective:: feels better this am less pain Reason For Visit: PANCREATITIS Physical Exam Vital Signs: Temp Pulse Resp BP Pulse Ox 98.8 F 92 24 H 133/71 H 97 11/11/19 03:29 11/11/19 03:29 11/11/19 03:29 11/11/19 03:29 11/11/19 03:29 Intake & Output 11/10/19 11/11/19 11/12/19 06:59 06:59 06:59 Intake Total 4360 5341 Output Total 1450 1850 Balance 2910 3491 Weight 190.1 kg 189.4 kg General appearance: PRESENT: no acute distress Head exam: PRESENT: atraumatic Eye exam: PRESENT: EOMI Mouth exam: PRESENT: dry mucosa Teeth exam: PRESENT: poor dentation Neck exam: PRESENT: full ROM Respiratory exam: PRESENT: clear to auscultation mari Cardiovascular exam: PRESENT: RRR Pulses: PRESENT: normal femoral pulses, normal dorsalis pedis pul Vascular exam: PRESENT: normal capillary refill Breast: PRESENT: Normal GI/Abdominal exam: PRESENT: soft - dressing dry Rectal exam: PRESENT: deferred Extremities exam: PRESENT: full ROM Musculoskeletal exam: PRESENT: full ROM Neurological exam: PRESENT: alert, awake Psychiatric exam: PRESENT: appropriate affect Skin exam: PRESENT: dry Results Laboratory Results: 11/10/19 21:28 11/10/19 05:30 11/10/19 21:28 WBC 7.7 RBC 4.06 L Hgb 12.0 L Hct 34.2 L MCV 84 MCH 29.5 MCHC 35.1 RDW 13.5 Plt Count 204 Seg Neutrophils % Not Reportable Impressions: Abdomen Ultrasound 11/08/19 13:43 IMPRESSION: Constellation of findings suggests cholecystitis. Background of cholelithiasis and adenomyomatosis. Hepatomegaly with coarsened echotexture is a nonspecific finding and may represent hepatitis, early cirrhotic change, or other. Abdomen/Pelvis CT 11/08/19 21:45 IMPRESSION: Moderate diffuse pancreatitis. Cholangiogram 11/10/19 00:00 IMPRESSION: INTRAOPERATIVE CHOLANGIOGRAM. Assessment & Plan - Time Anticipated Discharge Disposition: Home, Self Care Anticipated Discharge Timeframe: within 24 hours - Plan Summary Plan Summary: s/p lap mary with grams doing ok this am awaiting repeat lipase will advance diet if lipase [id number] prob home in am.
[2019-11-11 09:06] LABS: ABSOLUTE LYMPHOCYTES (AUTO) 0.8 10^3/uL (0.5-4.7); ABSOLUTE MONOCYTES (AUTO) 0.7 10^3/uL (0.1-1.4); ABSOLUTE NEUT (AUTO) 5.6 10^3/uL (1.7-8.2); BASOPHILS % (AUTO) 0.2 % (0-2); EOSINOPHILS % (AUTO) 0.5 % (0-6); HEMATOCRIT 32.1 % (37.9-51.0); HEMOGLOBIN 11.3 g/dL (13.5-17.0); LYMPHOCYTES % (AUTO) 11.4 % (13-45); MEAN CORPUSCULAR HEMOGLOBIN 29.7 pg (27.0-33.4); MEAN CORPUSCULAR HGB CONC 35.1 g/dL (32.0-36.0); MEAN CORPUSCULAR VOLUME 84 fl (80-97); PLATELET COUNT 190 10^3/uL (150-450); RED CELL DISTRIBUTION WIDTH 13.8 % (11.5-14.0); SEGMENTED NEUTROPHILS % (AUTO) 77.9 % (42-78); TOTAL CELLS COUNTED % (AUTO) 100 %; WHITE BLOOD COUNT 7.2 10^3/uL (4.0-10.5)
[2019-11-11 09:26] LABS: ANION GAP 8 (5-19); BLOOD UREA NITROGEN 6 mg/dL (7-20); CALCIUM 8.8 mg/dL (8.4-10.2); CARBON DIOXIDE 26 mmol/L (22-30); CHLORIDE 103 mmol/L (98-107); GLUCOSE 114 mg/dL (75-110); POTASSIUM 4.1 mmol/L (3.6-5.0)
[2019-11-11 09:27] LABS: ALBUMIN 3.3 g/dL (3.5-5.0); ALKALINE PHOSPHATASE 118 U/L (38-126); ASPARTATE AMINO TRANSFERASE 66 U/L (17-59); BILIRUBIN,DIRECT 0.4 mg/dL (0.0-0.4); BILIRUBIN,TOTAL 1.2 mg/dL (0.2-1.3)
--- NOTE | 2019-11-11 12:46 | PDOC PROGRESS REPORT ---
Subjective Progress Note for:: 11/11/19 Subjective:: No adverse events overnight. No new complaints. He would like to have his diet advanced because his belly is feeling better. No nausea or vomiting. Reason For Visit: PANCREATITIS Physical Exam Vital Signs: Temp Pulse Resp BP Pulse Ox 97.6 F 92 16 135/77 H 96 11/11/19 11:50 11/11/19 11:50 11/11/19 11:50 11/11/19 11:50 11/11/19 11:50 Intake & Output 11/10/19 11/11/19 11/12/19 06:59 06:59 06:59 Intake Total 4360 5341 Output Total 1450 1850 1250 Balance 2910 3491 -1250 Weight 190.1 kg 189.4 kg General appearance: PRESENT: cooperative, mild distress, morbidly obese, well- developed Head exam: PRESENT: atraumatic, normocephalic Eye exam: PRESENT: other - Did not assess Ear exam: PRESENT: normal external ear exam. ABSENT: bleeding, drainage Mouth exam: PRESENT: dry mucosa, tongue midline Respiratory exam: PRESENT: clear to auscultation mari - Anteriorly, symmetrical, unlabored. ABSENT: accessory muscle use, prolonged expiratory phas, rales, rhonchi, tachypnea, wheezes Cardiovascular exam: PRESENT: RRR, +S1, +S2. ABSENT: bradycardia, irregular rhythm GI/Abdominal exam: PRESENT: distended - Protuberant abdomen secondary to obesity, hypoactive bowel sounds Rectal exam: PRESENT: deferred Gentrourinary exam: PRESENT: indwelling catheter Extremities exam: PRESENT: pedal edema, other - SCDs in place Neurological exam: PRESENT: awake Results Laboratory Results: 11/11/19 08:52 11/11/19 08:52 11/10/19 11/11/19 11/11/19 21:28 08:52 08:52 WBC 7.7 7.2 RBC 4.06 L 3.80 L Hgb 12.0 L 11.3 L Hct 34.2 L 32.1 L MCV 84 84 MCH 29.5 29.7 MCHC 35.1 35.1 RDW 13.5 13.8 Plt Count 204 190 Seg Neutrophils % Not Reportable 77.9 Sodium 136.8 L Potassium 4.1 Chloride 103 Carbon Dioxide 26 Anion Gap 8 BUN 6 L Creatinine 0.54 Est GFR ( Amer) > 60 Glucose 114 H Calcium 8.8 Total Bilirubin AST Alkaline Phosphatase Total Protein Albumin Lipase 237.6 11/11/19 08:52 WBC RBC Hgb Hct MCV MCH MCHC RDW Plt Count Seg Neutrophils % Sodium Potassium Chloride Carbon Dioxide Anion Gap BUN Creatinine Est GFR ( Amer) Glucose Calcium Total Bilirubin 1.2 AST 66 H Alkaline Phosphatase 118 Total Protein 6.0 L Albumin 3.3 L Lipase Impressions: Abdomen Ultrasound 11/08/19 13:43 IMPRESSION: Constellation of findings suggests cholecystitis. Background of cholelithiasis and adenomyomatosis. Hepatomegaly with coarsened echotexture is a nonspecific finding and may represent hepatitis, early cirrhotic change, or other. Abdomen/Pelvis CT 11/08/19 21:45 IMPRESSION: Moderate diffuse pancreatitis. Cholangiogram 11/10/19 00:00 IMPRESSION: INTRAOPERATIVE CHOLANGIOGRAM. Assessment and Plan - Diagnosis (1) Gallstone pancreatitis Is this a current diagnosis for this admission?: Yes Plan: Status post cholecystectomy. Lipase is trending down. Diet advancement per surgery. If he tolerates advancement of his diet, he may be able to go home danica n. (2) Morbid obesity with BMI of 50.0-59.9, adult Is this a current diagnosis for this admission?: Yes Plan: Strongly encourage lifestyle modification - Time Time Spent with patient: 15-24 minutes Anticipated Discharge Disposition: Home, Self Care Anticipated Discharge Timeframe: within 72 hours
[2019-11-11] MEDS: OXYCODONE-ACETAMINOPHEN 5-325 MG TABLET PO PRN ×2 (14:33→20:29)
[2019-11-12] MEDS: OXYCODONE-ACETAMINOPHEN 5-325 MG TABLET PO PRN (04:09)
[2019-11-12 05:55] LABS: ABSOLUTE EOSINOPHILS # (AUTO) 0.1 10^3/uL (0.0-0.6); ABSOLUTE MONOCYTES (AUTO) 0.6 10^3/uL (0.1-1.4); ABSOLUTE NEUT (AUTO) 5.5 10^3/uL (1.7-8.2); BASOPHILS % (AUTO) 0.2 % (0-2); EOSINOPHILS % (AUTO) 1.8 % (0-6); HEMATOCRIT 31.9 % (37.9-51.0); HEMOGLOBIN 11.4 g/dL (13.5-17.0); LYMPHOCYTES % (AUTO) 13.6 % (13-45); MEAN CORPUSCULAR HEMOGLOBIN 30.1 pg (27.0-33.4); MEAN CORPUSCULAR HGB CONC 35.8 g/dL (32.0-36.0); MEAN CORPUSCULAR VOLUME 84 fl (80-97); MONOCYTES % (AUTO) 8.6 % (3-13); PLATELET COUNT 214 10^3/uL (150-450); RED CELL DISTRIBUTION WIDTH 13.9 % (11.5-14.0); SEGMENTED NEUTROPHILS % (AUTO) 75.8 % (42-78); TOTAL CELLS COUNTED % (AUTO) 100 %; WHITE BLOOD COUNT 7.3 10^3/uL (4.0-10.5)
[2019-11-12 06:08] LABS: ALBUMIN 3.3 g/dL (3.5-5.0); ALKALINE PHOSPHATASE 111 U/L (38-126); ANION GAP 10 (5-19); ASPARTATE AMINO TRANSFERASE 44 U/L (17-59); BILIRUBIN,DIRECT 0.3 mg/dL (0.0-0.4); BILIRUBIN,TOTAL 0.8 mg/dL (0.2-1.3); BLOOD UREA NITROGEN 9 mg/dL (7-20); CALCIUM 8.8 mg/dL (8.4-10.2); CARBON DIOXIDE 27 mmol/L (22-30); CHLORIDE 100 mmol/L (98-107); GLUCOSE 114 mg/dL (75-110); NEONATAL BILIRUBIN RESULT 0.5 mg/dL (0.1-1.1); POTASSIUM 3.9 mmol/L (3.6-5.0)
[2019-11-12] MEDS: HEPARIN SOD (PORCINE) 5,000 UNIT/ML 1 ML VIAL SUBCUT SCH ×2 (06:34→15:12)
--- NOTE | 2019-11-12 13:04 | PDOC PROGRESS REPORT ---
Subjective Progress Note for:: 11/12/19 Subjective:: PT FEELS WELL SALINAS REG DIET LIPASE WNL TBILI WNL Reason For Visit: PANCREATITIS Physical Exam Vital Signs: Temp Pulse Resp BP Pulse Ox 98.0 F 82 18 147/70 H 100 11/12/19 11:16 11/12/19 11:16 11/12/19 11:16 11/12/19 11:16 11/12/19 11:16 Intake & Output 11/11/19 11/12/19 11/13/19 06:59 06:59 06:59 Intake Total 5341 1600 675 Output Total 1850 2150 Balance 3491 -550 675 Weight 189.4 kg 183.7 kg General appearance: PRESENT: morbidly obese Head exam: PRESENT: normocephalic Eye exam: PRESENT: EOMI Ear exam: PRESENT: normal external ear exam Mouth exam: PRESENT: moist Neck exam: PRESENT: full ROM Respiratory exam: PRESENT: clear to auscultation mari Cardiovascular exam: PRESENT: RRR Pulses: PRESENT: normal radial pulses, normal femoral pulses Vascular exam: PRESENT: normal capillary refill Breast: PRESENT: Normal GI/Abdominal exam: PRESENT: soft Rectal exam: PRESENT: deferred Extremities exam: PRESENT: full ROM Musculoskeletal exam: PRESENT: ambulatory Neurological exam: PRESENT: alert, awake, oriented to person, oriented to place Psychiatric exam: PRESENT: appropriate affect Skin exam: PRESENT: dry Results Laboratory Results: 11/12/19 05:04 11/12/19 05:04 11/12/19 11/12/19 05:04 05:04 WBC 7.3 RBC 3.80 L Hgb 11.4 L Hct 31.9 L MCV 84 MCH 30.1 MCHC 35.8 RDW 13.9 Plt Count 214 Seg Neutrophils % 75.8 Sodium 137.0 Potassium 3.9 Chloride 100 Carbon Dioxide 27 Anion Gap 10 BUN 9 Creatinine 0.58 Est GFR ( Amer) > 60 Glucose 114 H Calcium 8.8 Total Bilirubin 0.8 AST 44 Alkaline Phosphatase 111 Total Protein 6.0 L Albumin 3.3 L Lipase 292.3 Impressions: Abdomen Ultrasound 11/08/19 13:43 IMPRESSION: Constellation of findings suggests cholecystitis. Background of cholelithiasis and adenomyomatosis. Hepatomegaly with coarsened echotexture is a nonspecific finding and may represent hepatitis, early cirrhotic change, or other. Abdomen/Pelvis CT 11/08/19 21:45 IMPRESSION: Moderate diffuse pancreatitis. Cholangiogram 11/10/19 00:00 IMPRESSION: INTRAOPERATIVE CHOLANGIOGRAM. Assessment & Plan - Time Anticipated Discharge Disposition: Home, Self Care Anticipated Discharge Timeframe: within 24 hours - Plan Summary Plan Summary: S/P LAP ADRIAN FOR GALLSTONE PANCREATITIS LIPASE AND TBILE NOW WNL PT SALINAS DIET OK FROM SURGERY STANDPT FOR DISCHARGE PT NEEDS A F/U IN SURGERY CLINIC IN 7-10 DAYS.
[2019-11-12 15:33] VITALS: BP 115/56
--- NOTE | 2019-11-15 18:08 | PDOC DISCHARGE SUMMARY ---
Impression - Admit/DC Date/PCP Admission Date/Primary Care Provider: 11/08/19 22:45 Discharge Date: 11/15/19 - Discharge Diagnosis (1) Gallstone pancreatitis Is this a current diagnosis for this admission?: Yes (2) Morbid obesity with BMI of 50.0-59.9, adult Is this a current diagnosis for this admission?: Yes - Additional Information Resuscitation Status: Full Code Discharge Diet: Regular Discharge Activity: No Lifting Over 10 Pounds, Slowly Increase Activity, No tub bath Referrals: JATIN CARMICHAEL MD [ACTIVE STAFF] - 11/28/19 9:45 am (7-10 days) Home Medications: No Home Medications 11/09/19 History of Present Illiness History of Present Illness: GERONIMO ROPER is a 29 year old male with a history of Prader-Willi syndrome and partial facial hemiparesis since childbirth. He has been experiencing upper abdominal pain for the past 4 months. Patient's abdominal pain was worsened today with associated vomiting. Abdominal ultrasound shows evidence of cholelithiasis and patient's pancreatic enzymes are significantly elevated. In the ED, patient is being rehydrated and will undergo a CT scan of his abdomen to further evaluate. He is being admitted to the intensive care unit for observation overnight and for aggressive rehydration. Hospital Course Hospital Course: He was stabilized medically and then underwent surgery to remove his gallbladder. Postoperatively he recovered fairly rapidly. He was eating and drinking and passing gas. He was given dietary and activity and wound care instructions. He will follow-up with Dr. Carmichael within 2 weeks of discharge. His labs and examination were reassuring and he was discharged in stable condition. Physical Exam Vital Signs: Temp Pulse Resp BP Pulse Ox 98.0 F 82 18 115/56 L 100 11/12/19 15:30 11/12/19 15:30 11/12/19 15:30 11/12/19 15:30 11/12/19 15:30 General appearance: PRESENT: cooperative, mild distress, morbidly obese, well- developed Head exam: PRESENT: atraumatic, normocephalic Eye exam: PRESENT: other - Did not assess Ear exam: PRESENT: normal external ear exam. ABSENT: bleeding, drainage Mouth exam: PRESENT: dry mucosa, tongue midline Respiratory exam: PRESENT: clear to auscultation mari - Anteriorly, symmetrical, unlabored. ABSENT: accessory muscle use, prolonged expiratory phas, rales, rhonchi, tachypnea, wheezes Cardiovascular exam: PRESENT: RRR, +S1, +S2. ABSENT: bradycardia, irregular rhythm GI/Abdominal exam: PRESENT: distended - Protuberant abdomen secondary to obesity, hypoactive bowel sounds Rectal exam: PRESENT: deferred Gentrourinary exam: PRESENT: indwelling catheter Extremities exam: PRESENT: pedal edema, other - SCDs in place Neurological exam: PRESENT: awake Results Laboratory Results: WBC 7.3 10^3/uL (4.0-10.5) 11/12/19 05:04 RBC 3.80 10^6/uL (4.35-5.55) L 11/12/19 05:04 Hgb 11.4 g/dL (13.5-17.0) L 11/12/19 05:04 Hct 31.9 % (37.9-51.0) L 11/12/19 05:04 MCV 84 fl (80-97) 11/12/19 05:04 MCH 30.1 pg (27.0-33.4) 11/12/19 05:04 MCHC 35.8 g/dL (32.0-36.0) 11/12/19 05:04 RDW 13.9 % (11.5-14.0) 11/12/19 05:04 Plt Count 214 10^3/uL (150-450) 11/12/19 05:04 Lymph % (Auto) 13.6 % (13-45) 11/12/19 05:04 Chase % (Auto) 8.6 % (3-13) 11/12/19 05:04 Eos % (Auto) 1.8 % (0-6) 11/12/19 05:04 Baso % (Auto) 0.2 % (0-2) 11/12/19 05:04 Absolute Neuts (auto) 5.5 10^3/uL (1.7-8.2) 11/12/19 05:04 Absolute Lymphs (auto) 1.0 10^3/uL (0.5-4.7) 11/12/19 05:04 Absolute Monos (auto) 0.6 10^3/uL (0.1-1.4) 11/12/19 05:04 Absolute Eos (auto) 0.1 10^3/uL (0.0-0.6) 11/12/19 05:04 Absolute Basos (auto) 0.0 10^3/uL (0.0-0.2) 11/12/19 05:04 Total Counted 100 11/10/19 21:28 Seg Neutrophils % 75.8 % (42-78) 11/12/19 05:04 Seg Neuts % (Manual) 92 % (42-78) H 11/10/19 21:28 Lymphocytes % (Manual) 3 % (13-45) L 11/10/19 21:28 Monocytes % (Manual) 5 % (3-13) 11/10/19 21:28 Eosinophils % (Manual) 0 % (0-6) 11/10/19 21: Basophils % (Manual) 0 % (0-2) 11/10/19 21:28 Abs Neuts (Manual) 7.1 10^3/uL (1.7-8.2) 11/10/19 21:28 Abs Lymphs (Manual) 0.2 10^3/uL (0.5-4.7) L 11/10/19 21:28 Abs Monocytes (Manual) 0.4 10^3/uL (0.1-1.4) 11/10/19 21:28 Absolute Eos (Manual) 0.0 10^3/uL (0.0-0.6) 11/10/19 21:28 Abs Basophils (Manual) 0.0 10^3/uL (0.0-0.2) 11/10/19 21:28 Platelet Comment ADEQUATE 11/10/19 21:28 RBC Morph Comment NORMO-CYTIC/CHROMIC 11/10/19 21:28 PT 14.6 SEC (11.4-15.4) 11/10/19 21: INR 1.12 11/10/19 21:28 APTT 34.3 SEC (23.5-35.8) 11/10/19 21:28 Sodium 137.0 mmol/L (137-145) 11/12/19 05:04 Potassium 3.9 mmol/L (3.6-5.0) 11/12/19 05:04 Chloride 100 mmol/L (98-107) 11/12/19 05:04 Carbon Dioxide 27 mmol/L (22-30) 11/12/19 05:04 Anion Gap 10 (5-19) 11/12/19 05:04 BUN 9 mg/dL (7-20) 11/12/19 05:04 Creatinine 0.58 mg/dL (0.52-1.25) 11/12/19 05:04 Est GFR ( Amer) > 60 (>60) 11/12/19 05:04 Est GFR (MDRD) Non-Af > 60 (>60) 11/12/19 05:04 Glucose 114 mg/dL (75-110) H 11/12/19 05:04 POC Glucose 84 mg/dL (70-110) 11/10/19 18:13 Calcium 8.8 mg/dL (8.4-10.2) 11/12/19 05:04 Total Bilirubin 0.8 mg/dL (0.2-1.3) 11/12/19 05:04 Direct Bilirubin 0.3 mg/dL (0.0-0.4) 11/12/19 05:04 Neonat Total Bilirubin 0.5 mg/dL (0.1-1.1) 11/12/19 05:04 Neonat Direct Bilirubin 0.0 mg/dL (0.0-0.3) 11/12/19 05:04 Neonat Indirect Bili 0.5 mg/dL (0.0-1.1) 11/12/19 05:04 AST 44 U/L (17-59) 11/12/19 05:04 ALT 97 U/L (<50) H 11/12/19 05:04 Alkaline Phosphatase 111 U/L (38-126) 11/12/19 05:04 Total Protein 6.0 g/dL (6.3-8.2) L 11/12/19 05:04 Albumin 3.3 g/dL (3.5-5.0) L 11/12/19 05:04 Amylase 208 U/L (30-110) H 11/10/19 05:30 Lipase 292.3 U/L (23-300) 11/12/19 05:04 Urine Color MARY 11/08/19 14:00 Urine Appearance SLIGHTLY-CLOUDY 11/08/19 14:00 Urine pH 5.0 (5.0-9.0) 11/08/19 14:00 Ur Specific [place] 1.029 11/08/19 14:00 Urine Protein 30 mg/dL (NEGATIVE) H 11/08/19 14:00 Urine Glucose (UA) NEGATIVE mg/dL (NEGATIVE) 11/08/19 14:00 Urine Ketones NEGATIVE mg/dL (NEGATIVE) 11/08/19 14:00 Urine Blood NEGATIVE (NEGATIVE) 11/08/19 14:00 Urine Nitrite NEGATIVE (NEGATIVE) 11/08/19 14:00 Urine Bilirubin SMALL (NEGATIVE) H 11/08/19 14:00 Urine Urobilinogen 4.0 mg/dL (<2.0) H 11/08/19 14:00 Ur Leukocyte Esterase NEGATIVE (NEGATIVE) 11/08/19 14:00 Urine WBC (Auto) 2 /HPF 11/08/19 14:00 Urine RBC (Auto) 0 /HPF 11/08/19 14:00 Squamous Epi Cells Auto 1 /HPF 11/08/19 14:00 Urine Mucus (Auto) RARE /LPF 11/08/19 14:00 Urine Ascorbic Acid NEGATIVE (NEGATIVE) 11/08/19 14:00 SARS-CoV-2 (PCR) NEGATIVE (NEGATIVE) 11/10/19 07:17 Impressions: Abdomen Ultrasound 11/08/19 13:43 IMPRESSION: Constellation of findings suggests cholecystitis. Background of cholelithiasis and adenomyomatosis. Hepatomegaly with coarsened echotexture is a nonspecific finding and may represent hepatitis, early cirrhotic change, or other. Abdomen/Pelvis CT 11/08/19 21:45 IMPRESSION: Moderate diffuse pancreatitis. Cholangiogram 11/10/19 00:00 IMPRESSION: INTRAOPERATIVE CHOLANGIOGRAM. Plan Time Spent: Greater than 30 Minutes Stroke Is this a Stroke Patient?: No Acute Heart Failure Is this a Heart Failure Patient?: No
== END 2019-11-12 16:11 | disposition home or self-care (01) | DRG 418 ==
LOC: ER 13:05 → EH 22:45 → ICU 11-09 03:15 → 3W 11-09 16:13
PROVIDERS: ADMIT Hospitalist; ATTEND Family Medicine
PROC: BF101ZZ Fluoroscopy of Bile Ducts using Low Osmolar Contrast (ICD-10-PCS; 2019-11-10)
PROC: 0FT44ZZ Resection of Gallbladder, Percutaneous Endoscopic Approach (ICD-10-PCS; principal; 2019-11-10 11:00)
DX: K85.10 Biliary acute pancreatitis without necrosis or infection (principal); Z68.43 Body mass index [BMI] 50.0-59.9, adult; Q87.11 Prader-Willi syndrome; E66.01 Morbid (severe) obesity due to excess calories; G80.8 Other cerebral palsy; Z88.2 Allergy status to sulfonamides; Z11.59 Encounter for screening for other viral diseases
CPT/HCPCS: 36415; 74177; 74300; 76705; 790; 80048; 80053; 80076; 81001; 82150; 82962; 83690; 85025; 85027; 85610; 85730; 87635; 88304; 90686; 93976; 96361; 96374; 96375; 99285; C9290; C9803; J0330; J0690; J1170; J1644; J1885; J2250; J2270; J2405; J2704; J3010; J3490; J7030; J7120; S0119

== ENCOUNTER 2019-11-20 12:51 | Emergency (ER) | payer MEDICARE ==
[2019-11-20] MEDS ORDERED: ONDANSETRON HCL INJ/PF 4 MG/2 ML SDV IV ONE (13:37)
[2019-11-20] MEDS ORDERED: RINGERS SOLUTION,LACTATED 1,000 ML IV ONE (13:37)
[2019-11-20] MEDS ORDERED: MORPHINE SULFATE 10 MG/ML INJ IV ONE (13:37)
--- NOTE | 2019-11-20 13:39 | ER Document Report ---
ED Medical Screen (RME) - General Chief Complaint: Post Surgical Pain Stated Complaint: SURTURE CHECK/SURGICAL PAIN Time Seen by Provider: 11/20/19 13:32 Mode of Arrival: Ambulatory Information source: Patient Notes: HPI; 29-year-old male presents to the emergency room complaining of worsening pain redness and drainage to his postsurgical site from a cholecystectomy on 11/[address] Sullivan. Patient states he noticed increased redness and drainage 2 days ago. States has not had a follow-up appointment yet with his surgeon. Not taking anything for pain. He denies any fevers. PE: Alert and oriented x3. Lungs: Clear to auscultation without rales, rhonchi, wheezes. Heart: Regular rate rhythm without murmurs, rubs, gallops. There is a moderate amount of erythema with purulent drainage noted around the umbilicus with jesse intact. It is warm and tender to palpation. I have greeted and performed a rapid initial assessment of this patient. A comprehensive ED assessment and evaluation of the patient, analysis of test results and completion of the medical decision making process will be conducted by additional ED providers. I have specifically instructed the patient or family members with the patient to immediately return to any nursing staff should anything change in the patient's condition or with their chief complaint. TRAVEL OUTSIDE OF THE [place] IN LAST 30 DAYS: No - Related Data Allergies/Adverse Reactions: Sulfa (Sulfonamide Antibiotics) Allergy (Verified 11/08/19 13:44) Past Medical History - Social History Chew tobacco use (# tins/day): No Frequency of alcohol use: None Drug Abuse: None Psychiatric Medical History: Denies: Hx Attention Deficit Hyperactivity Disorder, Hx Bipolar Disorder, Hx Dementia, Hx Depression, Hx Personality Disorder, Hx Post Traumatic Stress Disorder, Hx Schizoaffective Disorder Traumatic Medical History: Denies: Hx Gunshot Wound, Hx Pneumothorax, Hx Traumatic Brain Injury Infectious Medical History: Denies: Hx C-Diff, Hx HIV, Hx MRSA, Hx VRE Past Surgical History: Denies: Hx Appendectomy, Hx Cardiac Catheterization, Hx Carotid Endarterectomy, Hx Cholecystectomy, Hx Colostomy, Hx Coronary Artery Bypass Graft, Hx Coronary Stent, Hx Gastric Bypass Surgery, Hx Herniorrhaphy, Hx Ileostomy, Hx Internal Defibrillator, Hx Orthopedic Surgery, Hx Pacemaker, Hx Tonsillectomy, Hx Valve Replacement, Hx Vascular Surgery, Other Physical Exam - Vital signs Vitals: Temp Pulse Resp BP Pulse Ox 97.4 F 77 20 127/79 H 99 11/20/19 13:28 11/20/19 13:28 11/20/19 13:28 11/20/19 13:28 11/20/19 13:28 Course - Vital Signs Vital signs: Temp Pulse Resp BP Pulse Ox 97.4 F 77 20 127/79 H 99 11/20/19 13:35 11/20/19 13:28 11/20/19 13:28 11/20/19 13:28 11/20/19 13:28
[2019-11-20 14:20] LABS: HEMATOCRIT 34.1 % (37.9-51.0); HEMOGLOBIN 11.9 g/dL (13.5-17.0); MEAN CORPUSCULAR VOLUME 83 fl (80-97); PLATELET COUNT 374 10^3/uL (150-450); RED CELL DISTRIBUTION WIDTH 13.6 % (11.5-14.0); WHITE BLOOD COUNT 6.7 10^3/uL (4.0-10.5)
[2019-11-20 14:30] LABS: ALBUMIN 3.6 g/dL (3.5-5.0); ALKALINE PHOSPHATASE 84 U/L (38-126); ANION GAP 9 (5-19); ASPARTATE AMINO TRANSFERASE 22 U/L (17-59); BILIRUBIN,DIRECT 0.4 mg/dL (0.0-0.4); BILIRUBIN,TOTAL 0.5 mg/dL (0.2-1.3); BLOOD UREA NITROGEN 5 mg/dL (7-20); CALCIUM 8.9 mg/dL (8.4-10.2); CARBON DIOXIDE 28 mmol/L (22-30); CHLORIDE 102 mmol/L (98-107); GLUCOSE 92 mg/dL (75-110); POTASSIUM 4.3 mmol/L (3.6-5.0); TOTAL PROTEIN 6.5 g/dL (6.3-8.2)
[2019-11-20 14:42] LABS: ABSOLUTE LYMPHOCYTES# (MANUAL) 1.9 10^3/uL (0.5-4.7); ABSOLUTE MONOCYTES # (MANUAL) 0.2 10^3/uL (0.1-1.4); BAND NEUTROPHILS % (MANUAL) 1 % (3-5); BASOPHILS % (MANUAL) 1 % (0-2); EOSINOPHILS % (MANUAL) 6 % (0-6); LYMPHOCYTES % (MANUAL) 29 % (13-45); MONOCYTES % (MANUAL) 3 % (3-13); SEGMENTED NEUTROPHILS % (MAN) 60 % (42-78); TOTAL CELLS COUNTED 100
[2019-11-20 14:43] LABS: PLATELET COMMENT ADEQUATE; RBC MORPHOLOGY COMMENT NORMO-CYTIC/CHROMIC
--- NOTE | 2019-11-20 19:54 | ER Document Report ---
Entered by FLORENCE ESPINOZA SCRIBE 11/20/19 1523 Acting as scribe for:SRAVAN AMADOR MD ED General - General Chief Complaint: Post Surgical Pain Stated Complaint: SURTURE CHECK/SURGICAL PAIN Time Seen by Provider: 11/20/19 13:32 Mode of Arrival: Ambulatory Information source: Patient Notes: This 29 year old male patient presents to the ED today for evaluation of w orsening pain, redness, and drainage to his post-surgical site. Patient had a laparascopic cholecystectomy with cholangiogram due to gallstone pancreatitis on 11/[address] Sullivan. He states that he noticed the greenish drainage near his umbilicus yesterday while in the shower. He states that he has not had a follow- up appointment with his surgeon yet. He notes nausea without emesis and denies any fevers. No pain medications taken prior to arrival. TRAVEL OUTSIDE OF THE [place] IN LAST 30 DAYS: No - Related Data Allergies/Adverse Reactions: Sulfa (Sulfonamide Antibiotics) Allergy (Verified 11/08/19 13:44) Past Medical History - General Information source: Patient, [facility] Records - Social History Smoking Status: Never Smoker Cigarette use (# per day): No Chew tobacco use (# tins/day): No Smoking Education Provided: No Frequency of alcohol use: None Drug Abuse: None Family History: Reviewed & Not Pertinent GI Medical History: Reports: Hx Pancreatitis Past Surgical History: Reports: Hx Cholecystectomy - 11/10/2019 due to gallstone pancreatitis Review of Systems - Review of Systems Constitutional: See HPI EENT: No symptoms reported Cardiovascular: No symptoms reported Respiratory: No symptoms reported Gastrointestinal: See HPI Genitourinary: No symptoms reported Male Genitourinary: No symptoms reported Musculoskeletal: No symptoms reported Skin: See HPI Hematologic/Lymphatic: No symptoms reported Neurological/Psychological: No symptoms reported -: Yes All other systems reviewed and negative Physical Exam - Vital signs Vitals: Temp Pulse Resp BP Pulse Ox 97.4 F 77 20 127/79 H 99 11/20/19 13:28 11/20/19 13:28 11/20/19 13:28 11/20/19 13:28 11/20/19 13:28 - General General appearance: Alert In distress: None - HEENT Head: Normocephalic, Atraumatic Eyes: Normal Pupils: PERRL - Respiratory Respiratory status: No respiratory distress Chest status: Nontender Breath sounds: Normal Chest palpation: Normal - Cardiovascular Rhythm: Regular Heart sounds: Normal auscultation, S1 appreciated, S2 appreciated Murmur: No Friction rub: No Gallop: None auscultated - Abdominal Inspection: Morbidly Obese, Other - There is serous yellow fluid draining from the midline surgical wound which is stapled together and is pooling in the umbil icus. Surrounding erythema noted around surgical site; warm to the touch. Bowel sounds: Normal Tenderness: Tender - Tenderness to palpation near surgical site at the midline Organomegaly: No organomegaly - Back Back: Normal, Nontender - Extremities General upper extremity: Normal inspection General lower extremity: Normal inspection. No: Edema - Neurological Neuro grossly intact: Yes Orientation: AAOx4 [place] Coma Scale Eye Opening: Spontaneous [place] Coma Scale Verbal: Oriented [place] Coma Scale Motor: Obeys Commands [place] Coma Scale Total: 15 - Psychological Associated symptoms: Normal affect, Normal mood - Skin Skin Temperature: Warm Skin Moisture: Dry Skin Color: Normal Course - Re-evaluation Re-evalutation: 11/20/19 21:00 Not showing any signs of sepsis. Patient's resting comfortably at this time. - Vital Signs Vital signs: Temp Pulse Resp BP Pulse Ox 98.5 F 66 20 138/82 H 96 11/20/19 16:06 11/20/19 19:25 11/20/19 13:28 11/20/19 18:02 11/20/19 18:02 11/20/19 21:00 Vital signs are stable afebrile 11/20/19 21:16 Vital signs are stable. - Laboratory Result Diagrams: 11/20/19 13:53 11/20/19 13:53 Laboratory results interpreted by me: 11/20/19 11/20/19 13:53 13:53 RBC 4.10 L Hgb 11.9 L Hct 34.1 L Band Neutrophils % 1 L BUN 5 L 11/20/19 21:01 11/20/19 13:53 11/20/19 13:53 MCV 83 fl (80-97) 11/20/19 13:53 MCH 29.0 pg (27.0-33.4) 11/20/19 13:53 MCHC 35.0 g/dL (32.0-36.0) 11/20/19 13:53 RDW 13.6 % (11.5-14.0) 11/20/19 13:53 Seg Neutrophils % Not Reportable 11/20/19 13:53 Chloride 102 mmol/L (98-107) 11/20/19 13:53 Carbon Dioxide 28 mmol/L (22-30) 11/20/19 13:53 Anion Gap 9 (5-19) 11/20/19 13:53 Est GFR ( Amer) > 60 (>60) 11/20/19 13:53 Glucose 92 mg/dL (75-110) 11/20/19 13:53 Lactic Acid 1.4 mmol/L (0.7-2.1) 11/20/19 13:53 Calcium 8.9 mg/dL (8.4-10.2) 11/20/19 13:53 Total Bilirubin 0.5 mg/dL (0.2-1.3) 11/20/19 13:53 AST 22 U/L (17-59) 11/20/19 13:53 Alkaline Phosphatase 84 U/L (38-126) 11/20/19 13:53 Total Protein 6.5 g/dL (6.3-8.2) 11/20/19 13:53 Albumin 3.6 g/dL (3.5-5.0) 11/20/19 13:53 Lipase 182.1 U/L (23-300) 11/20/19 13:53 Laboratory essentially within normal limits normal white blood cell count normal lipase normal LFTs lactic acid within normal range. 11/20/19 21:16 Patient's laboratories are within normal limits. No evidence of any acute process noted. - Diagnostic Test Radiology reviewed: Image reviewed, Reports reviewed Radiology results interpreted by me: 11/20/19 21:01 Abdomen/Pelvis CT 11/20/19 00:00 IMPRESSION: 1. Focal inflammatory changes along the anterior midline abdominal wall soft tissues but without drainable fluid collection or abscess seen. 2. Small amount of fluid with surgical clips in the gallbladder fossa but without a definite abscess visualized. 11/20/19 21:16 CT scan of the abdomen and pelvis shows a focal inflammatory change along the anterior midline abdominal wall soft tissues without any drainable fluid or abscess seen. Small amount of fluid with surgical clips in the gallbladder fossa but without any definite abscess. Discharge - Discharge Clinical Impression: Postoperative complication of skin involving drainage from surgical wound Condition: Stable Disposition: HOME, SELF-CARE I personally performed the services described in the documentation, reviewed and edited the documentation which was dictated to the scribe in my presence, and it accurately records my words and actions.
--- NOTE | 2019-11-20 20:39 | RADIOLOGY REPORT (SQ) ---
CT ABDOMEN PELVIS WITH IV CONTRAST HISTORY: Post surgical drainage. COMPARISON: 11/09/2019 TECHNIQUE: CT scan of the abdomen and pelvis was performed with IV contrast. This exam was performed according to our departmental dose-optimization program, which includes automated exposure control, adjustment of the mA and/or kV according to patient size and/or use of iterative reconstruction technique. FINDINGS: The lung bases are clear. No pleural or pericardial effusions. There is no hiatal hernia. There is a small amount of fluid in the gallbladder fossa along with surgical clips. Interval decrease in inflammatory stranding surrounding the pancreas. Liver, spleen, adrenal glands, kidneys, and pelvic organs are unremarkable. No hydronephrosis or urinary stones are seen. Oral contrast is seen in parts of the small and large bowel. No evidence of bowel obstruction or inflammation. Appendix is normal. No intraperitoneal free fluid or free air is seen. Focal inflammatory changes along the anterior midline abdominal wall with surgical clips and subcutaneous air. However, no drainable fluid collection is seen in this region. The bony structures are preserved. The aorta and IVC are unremarkable. IMPRESSION: 1. Focal inflammatory changes along the anterior midline abdominal wall soft tissues but without drainable fluid collection or abscess seen. 2. Small amount of fluid with surgical clips in the gallbladder fossa but without a definite abscess visualized.
--- NOTE | 2019-11-20 21:38 | Operative Report ---
Operative Report DATE OF SURGERY: 11/20/19 PREOPERATIVE DIAGNOSIS: 1. Superficial surgical site wound infection below the umbilicus. 2. Status post laparoscopic cholecystectomy. 3. Morbid obesity POSTOPERATIVE DIAGNOSIS: Same OPERATION: Operative site staple removal, necrotic skin debridement, wound irrigation and packing SURGEON: KERRI NOBLE ANESTHESIA: Other - None TISSUE REMOVED OR ALTERED: Nonviable skin, seropurulent discharge COMPLICATIONS: None ESTIMATED BLOOD LOSS: Scant INTRAOPERATIVE FINDINGS: See below PROCEDURE: Indication for procedure I was consulted as a surgeon on-call by Dr. Cardoso because of swelling and redness at the infraumbilical a laparoscopic surgical site 10 days following laparoscopic cholecystectomy by Dr. Sujit Sullivan. Patient had no fever, no leukocytosis and a CT scan that demonstrated no drainable fluid. The patient had been in the emergency department for approximately 8 hours. I examined the patient and ascertain that he had a superficial surgical site wound infection. At bedside I removed all 7 jesse below the umbilicus, debrided the nonviable skin edge with 11 blade, and irrigated out the seropurulent fluid tracking down to the fascia. The fascia appeared intact. There was no tracking or naif cellulitis. Wound irrigated with peroxide, Q-tip, then packed with half of a 4 x 4 moistened with saline. 4 x 4's tucked into the umbilicus. Patient tolerated procedure well and was most grateful. Plan: 1. Discharge patient home on a local dressing changes as performed above. We are giving patient gauze 4 x 4's to assist 2. Patient to follow-up with Dr. Sullivan, at [facility] this week; he will call tomorrow, Thursday, November 20 for an appointment 3. No oral antibiotics indicated 4. I have reviewed the above with the nursing staff and Dr. Cardoso.
[2019-11-20 22:12] VITALS: BP 149/82
== END 2019-11-20 22:10 | disposition home or self-care (01) ==
LOC: ER 12:51
DX: T81.41XA Infection following a procedure, superficial incisional surgical site, initial encounter (principal); Y83.6 Removal of other organ (partial) (total) as the cause of abnormal reaction of the patient, or of later complication, without mention of misadventure at the time of the procedure; Z90.49 Acquired absence of other specified parts of digestive tract; E66.01 Morbid (severe) obesity due to excess calories; Z88.2 Allergy status to sulfonamides
CPT/HCPCS: 97597; 99285; 96374; 96375; 36415; 87040; 87070; 87205; 83605; 83690; 85025; 87077; 80053; 87186; 74177; J2270; J2405; J7120

== ENCOUNTER 2019-11-25 10:38 | Emergency (ER) | payer MEDICARE ==
[2019-11-25] MEDS ORDERED: IBUPROFEN 800 MG TABLET PO ONE (11:00)
--- NOTE | 2019-11-25 11:00 | ER Document Report ---
ED Medical Screen (RME) - General Chief Complaint: Suture Removal Stated Complaint: SUTURE REMOVAL/ABDOMINAL Time Seen by Provider: 11/25/19 10:53 Mode of Arrival: Ambulatory Information source: Patient Notes: 29-year-old male presented to ED for wound recheck. He had a cholecystectomy by Dr. Sullivan recently. He came back in for today for wound recheck. He states that he did not realize he had an appointment on the . He does have foul smell from the wound. According to 1 of the nurses who does the culture results he does have MRSA in the wound. He states his pain is a 3 out of 5. He states he does not smoke drink or use any drugs. He does need his wound reassessed and he needs some blood work as he states he has been a little dizzy and lightheaded recently. Patient will be seen by another provider. I have greeted and performed a rapid initial assessment of this patient. A comprehensive ED assessment and evaluation of the patient, analysis of test results and completion of medical decision making process will be conducted by an additional ED providers. TRAVEL OUTSIDE OF THE [place] IN LAST 30 DAYS: No - Related Data Allergies/Adverse Reactions: Sulfa (Sulfonamide Antibiotics) Allergy (Verified 11/25/19 10:57) Past Medical History GI Medical History: Reports: Hx Pancreatitis Psychiatric Medical History: Denies: Hx Attention Deficit Hyperactivity Disorder, Hx Bipolar Disorder, Hx Dementia, Hx Depression, Hx Personality Disorder, Hx Post Traumatic Stress Disorder, Hx Schizoaffective Disorder Traumatic Medical History: Denies: Hx Gunshot Wound, Hx Pneumothorax, Hx Traumatic Brain Injury Infectious Medical History: Denies: Hx C-Diff, Hx HIV, Hx MRSA, Hx VRE Past Surgical History: Reports: Hx Cholecystectomy - 11/10/2019 due to gallstone pancreatitis. Denies: Hx Appendectomy, Hx Cardiac Catheterization, Hx Carotid Endarterectomy, Hx Colostomy, Hx Coronary Artery Bypass Graft, Hx Coronary Stent, Hx Gastric Bypass Surgery, Hx Herniorrhaphy, Hx Ileostomy, Hx Internal Defibrillator, Hx Orthopedic Surgery, Hx Pacemaker, Hx Tonsillectomy, Hx Valve Replacement, Hx Vascular Surgery, Other Physical Exam - Vital signs Vitals: Temp Pulse Resp BP Pulse Ox 98.2 F 82 20 137/84 H 97 11/25/19 10:43 11/25/19 10:43 11/25/19 10:43 11/25/19 10:43 11/25/19 10:43 Course - Vital Signs Vital signs: Temp Pulse Resp BP Pulse Ox 98.2 F 82 20 137/84 H 97 11/25/19 10:43 11/25/19 10:43 11/25/19 10:43 11/25/19 10:43 11/25/19 10:43
[2019-11-25 11:42] LABS: ABSOLUTE BASOPHILS # (AUTO) 0.1 10^3/uL (0.0-0.2); ABSOLUTE EOSINOPHILS # (AUTO) 0.4 10^3/uL (0.0-0.6); ABSOLUTE LYMPHOCYTES (AUTO) 1.8 10^3/uL (0.5-4.7); ABSOLUTE MONOCYTES (AUTO) 0.5 10^3/uL (0.1-1.4); RED CELL DISTRIBUTION WIDTH 13.9 % (11.5-14.0); TOTAL CELLS COUNTED % (AUTO) 100 %
[2019-11-25 11:46] LABS: ABSOLUTE NEUT (AUTO) 4.7 10^3/uL (1.7-8.2); BASOPHILS % (AUTO) 0.8 % (0-2); HEMATOCRIT 36.7 % (37.9-51.0); MEAN CORPUSCULAR HEMOGLOBIN 29.4 pg (27.0-33.4); MEAN CORPUSCULAR HGB CONC 35.5 g/dL (32.0-36.0); MEAN CORPUSCULAR VOLUME 83 fl (80-97); MONOCYTES % (AUTO) 6.5 % (3-13); PLATELET COUNT 381 10^3/uL (150-450); RED BLOOD COUNT 4.43 10^6/uL (4.35-5.55); SEGMENTED NEUTROPHILS % (AUTO) 63.7 % (42-78); WHITE BLOOD COUNT 7.3 10^3/uL (4.0-10.5)
[2019-11-25 12:02] LABS: ALBUMIN 4.2 g/dL (3.5-5.0); ALKALINE PHOSPHATASE 81 U/L (38-126); ANION GAP 14 (5-19); ASPARTATE AMINO TRANSFERASE 29 U/L (17-59); BILIRUBIN,DIRECT 0.3 mg/dL (0.0-0.4); BILIRUBIN,TOTAL 0.5 mg/dL (0.2-1.3); BLOOD UREA NITROGEN 8 mg/dL (7-20); CALCIUM 9.9 mg/dL (8.4-10.2); CARBON DIOXIDE 27 mmol/L (22-30); CHLORIDE 99 mmol/L (98-107); GLUCOSE 106 mg/dL (75-110); POTASSIUM 4.4 mmol/L (3.6-5.0); TOTAL PROTEIN 7.6 g/dL (6.3-8.2)
[2019-11-25] MEDS ORDERED: CEFEPIME 2 GM/D5W RTU 2 GM/50 ML RTUPB IV ONE (12:51)
[2019-11-25] MEDS ORDERED: VANCOMYCIN HCL INJ 1000 MG VIAL IV ONE (12:52)
--- NOTE | 2019-11-25 15:29 | ER Document Report ---
Entered by FLORENCE ESPINOZA SCRIBE 11/25/19 1250 Acting as scribe for:SRAVAN AMADOR MD ED General - General Chief Complaint: Wound Infection Stated Complaint: SUTURE REMOVAL/ABDOMINAL Time Seen by Provider: 11/25/19 10:53 Mode of Arrival: Ambulatory Information source: Patient Notes: This 29 year old male patient presents to the ED today for re-evaluation of his wound. Patient had a laparascopic cholecystectomy with cholangiogram due to gallstone pancreatitis on 11/[address] Carmichael. He was seen here on 11/19 because he noticed increased pain, redness and drainage at the infraumbilical surgical site. During that visit, he underwent operative site staple removal, necrotic skin debridement, and wound irrigation/packing by Dr. Boateng; he was discharged home with instructions to call the [facility] on 11/20 to make a follow-up appointment with Dr. Carmichael, no oral antibiotics were indicated at that time per Dr. Boateng. Patient states that he still has not followed-up with the surgeon since his last visit, but has an appointment on 11/27. He is now reporting a foul-smell from the site and increased pain. Patient had a wound culture done on his last visit which grew out MRSA, E. coli, and Proteus Vulgaris. TRAVEL OUTSIDE OF THE [place] IN LAST 30 DAYS: No - Related Data Allergies/Adverse Reactions: Sulfa (Sulfonamide Antibiotics) Allergy (Verified 11/25/19 10:57) Past Medical History - General Information source: Patient - Social History Smoking Status: Former Smoker Chew tobacco use (# tins/day): No Smoking Education Provided: No Frequency of alcohol use: None Family History: Reviewed & Not Pertinent Patient has suicidal ideation: No Patient has homicidal ideation: No GI Medical History: Reports: Hx Pancreatitis Past Surgical History: Reports: Hx Cholecystectomy - 11/10/2019 due to gallstone pancreatitis Physical Exam - Vital signs Vitals: Temp Pulse Resp BP Pulse Ox 98.2 F 82 20 137/84 H 97 11/25/19 10:43 11/25/19 10:43 11/25/19 10:43 11/25/19 10:43 11/25/19 10:43 - General General appearance: Alert In distress: None - HEENT Head: Normocephalic, Atraumatic Eyes: Normal Pupils: PERRL - Respiratory Respiratory status: No respiratory distress Chest status: Nontender Breath sounds: Normal Chest palpation: Normal - Cardiovascular Rhythm: Regular Heart sounds: Normal auscultation, S1 appreciated, S2 appreciated Murmur: No Friction rub: No Gallop: None auscultated - Abdominal Inspection: Morbidly Obese, Other - Open wound noted at infraumbilical surgical site with pink granulated tissue exposed and brady-dwight colored serous fluid pooling in the umbilicus Bowel sounds: Normal Tenderness: Tender - Periumbilical tenderness to palpation. No: Guarding, Rebound Organomegaly: No organomegaly - Back Back: Normal, Nontender - Extremities General upper extremity: Normal inspection General lower extremity: Normal inspection. No: Edema - Neurological Neuro grossly intact: Yes Orientation: AAOx4 [place] Coma Scale Eye Opening: Spontaneous Bart[place] Coma Scale Verbal: Oriented [place] Coma Scale Motor: Obeys Commands [place] Coma Scale Total: 15 Sensory: Normal - Psychological Associated symptoms: Normal affect, Normal mood - Skin Skin Temperature: Warm Skin Moisture: Dry Skin Color: Normal Course - Re-evaluation Re-evalutation: 11/25/19 15:55 Patient resting comfortably at this time not showing signs of distress. Patient still receiving his IV antibiotic at this time. 11/25/19 16:01 Patient's culture from November 19 of the wound site shows that MRSA, E. coli, and Proteus vulgaris were cultured. Patient will be placed on antibiotics according to sensitivity report. In the ED patient did receive cefepime which was sensitive to the E. coli and Proteus and vancomycin was sensitive to the MRSA infection. 11/25/19 16:14 - Vital Signs Vital signs: Temp Pulse Resp BP Pulse Ox 98.2 F 82 20 137/84 H 97 11/25/19 10:43 11/25/19 10:43 11/25/19 10:43 11/25/19 10:43 11/25/19 10:43 11/25/19 15:55 Vital signs stable afebrile. - Laboratory Result Diagrams: 11/25/19 11:15 11/25/19 11:15 Laboratory results interpreted by me: 11/25/19 11:15 Hgb 13.0 L Hct 36.7 L 11/25/19 15:55 Laboratories essentially unremarkable. No elevated white blood cell count chemistries and CBC within normal range. - Diagnostic Test Radiology reviewed: Image reviewed, Reports reviewed - Consults Dr. Carmichael Time consulted: 13:24 - Case discussed with Dr. Carmichael, and per our discussion patient has an appointment on November 27Thursday and patient is to keep that appointment time. Dr. Carmichael recommended moist warm compress and begin patient on Bactrim DS to cover the MRSA infection that person has. On further examination of the wound culture and sensitivity patient has 3 pathogens including MRSA, E. coli and Proteus vulgaris. Patient is allergic to sulfa antibiotics which would have been a great selection inasmuch as the sensitivity shows that sulfa antibiotics sensitive to all 3 pathogens. However patient is allergic to sulfa antibiotics. Therefore patient has been placed on Augmentin and doxycycline. Reason for consultation: 11/25/19 16:02 Discussed postop wound infection. Discharge - Discharge Clinical Impression: Infection of postoperative wound due to methicillin-resistant Staphylococcus aureus, Morbid obesity with BMI of 50.0-59.9, adult Condition: Stable Disposition: HOME, SELF-CARE Additional Instructions: You have a postop wound infection requiring antibiotics at this time. As you know your wound was opened on November 19 when you visit the ED once you have been discharged several days before that. Cultures were done at that time and cultures have proven that show that there is a infection including 3 bacterial pathogens and that is MRSA, E. coli , and Proteus vulgaris. All 3 of these pathogens are sensitive to sulfa antibiotics and you were placed on antibiotics according to the culture and sensitivity report. Also you are to follow-up with Dr. Carmichael on Thursday, November 27, and you already have an appointment for that date and time. Meanwhile you are to apply moist warm compress applications to the wound area site and leave on for about 20 minutes 3 times a day. Otherwise keep wound site covered clean and dry. Recommend that you take Tylenol 1000 mg twice a day if needed for any pain or fever. Any problems you need to return to the emergency department immediately such as fever chills nausea vomiting worsening drainage from your wound site. Prescriptions: Amoxicillin/Potassium Clav [Augmentin 875-125 Tablet] 1 tab PO BID #20 tab Doxycycline Hyclate 100 mg PO BID #20 tablet.dr Referrals: JATIN CARMICHAEL MD [ACTIVE STAFF] - 11/28/19 I personally performed the services described in the documentation, reviewed and edited the documentation which was dictated to the scribe in my presence, and it accurately records my words and actions.
[2019-11-25 16:51] VITALS: BP 124/84
== END 2019-11-25 16:48 | disposition home or self-care (01) ==
LOC: ER 10:38
DX: T81.49XA Infection following a procedure, other surgical site, initial encounter (principal); B95.62 Methicillin resistant Staphylococcus aureus infection as the cause of diseases classified elsewhere; B96.20 Unspecified Escherichia coli [E. coli] as the cause of diseases classified elsewhere; B96.4 Proteus (mirabilis) (morganii) as the cause of diseases classified elsewhere; Y83.6 Removal of other organ (partial) (total) as the cause of abnormal reaction of the patient, or of later complication, without mention of misadventure at the time of the procedure; E66.01 Morbid (severe) obesity due to excess calories; Z68.43 Body mass index [BMI] 50.0-59.9, adult; Z87.891 Personal history of nicotine dependence; Z90.49 Acquired absence of other specified parts of digestive tract; Z88.2 Allergy status to sulfonamides
CPT/HCPCS: 99284; 96365; 96366; 96368; 36415; 87040; 87070; 87205; 83690; 85025; 87075; 87077; 80053; 87186; A9270; J3370; J0692